=== PATIENT | male | born 1995 ===

== ENCOUNTER 2021-07-16 18:41 | Emergency (ER) | payer OTHER, SELFPAY ==
--- NOTE | ~2021-07-16 | XR_ITS ---
EXAMINATION: XR CHEST CLINICAL INFORMATION: Chest pain. COMPARISON: None TECHNIQUE: PA view of the chest was obtained. FINDINGS: Focal airspace opacity in the right lower lobe. Otherwise, clear lungs. No pleural effusion or pneumothorax. Normal appearance of the cardiomediastinal silhouette. No acute osseous abnormalities. The visualized upper abdomen is within normal limits. XR/XR chest 1V IMPRESSION: Focal airspace opacity in the right lower lobe which is nonspecific and could be associated with focal pneumonia in the appropriate clinical context. Recommend interval imaging to ensure appropriate resolution.
[2021-07-16 18:44] VITALS: BP 153/85; PULSE 115; RESP 17; TEMP 36.8; O2SAT 100; BMI 34.4
--- NOTE | 2021-07-16 18:48 | ECG_ITS ---
Test Reason : CHEST PAIN Blood Pressure : / mmHG Vent. Rate : 101 BPM Atrial Rate : 101 BPM P-R Int : 136 ms QRS Dur : 096 ms QT Int : 328 ms P-R-T Axes : 055 057 052 degrees QTc Int : 425 ms Sinus tachycardia Otherwise normal ECG No previous ECGs available Referred By: Generic ED Physician Electronically Signed By:JAMES MCQUEEN MD
[2021-07-16 19:04] LABS: MANUAL DIFF FLAG NO
[2021-07-16 19:06] LABS: Basophils Percent Auto 0.4 % (0-2); Eosinophils Absolute Auto 0.1 X10*3/uL (0.0-0.4); Eosinophils Percent Auto 0.8 % (0-4); Hematocrit 41.8 % (42.0-52.0); Hemoglobin 14.4 g/dl (14.0-18.0); Imm Gran Abs Auto 0.05 X10*3/uL (0.00-0.03); Imm Gran Pct Auto 0.7 % (0.0-0.4); Lymphocytes Absolute Auto 2.4 X10*3/uL (1.2-4.9); Lymphocytes Percent Auto 32.7 % (20-40); Mean Corpuscular HGB Conc 34.4 g/dl (31.0-36.0); Mean Corpuscular Hemoglobin 30.4 pg (27.0-33.0); Mean Corpuscular Volume 88.2 fL (80.0-98.0); Mean Platelet Volume 11.5 fL (9.4-12.4); Monocytes Absolute Auto 0.6 X10*3/uL (0.1-1.2); Monocytes Percent Auto 8.4 % (2-11); Neutrophils Absolute Auto 4.2 x10*3/uL (2.0-8.3); Platelet Count 208 X10*3/uL (160-400); Red Blood Count 4.74 X10*6/uL (4.60-5.80); Red Cell Distribution Width 13.1 % (11.0-16.0); White Blood Count 7.4 X10*3/uL (4.8-10.8)
[2021-07-16 19:19] LABS: Anion Gap 16 (12-20); Blood Urea Nitrogen 13 mg/dL (9-16); Calcium 9.5 mg/dL (8.4-10.2); Carbon Dioxide 24 mmol/L (22-29); Chloride 102 mmol/L (96-108); Creatinine Clr Calc Pharmacy 115.5; Estimated Glomerular Filt Rate > 60; Glucose Random 123 mg/dL (60-115); Potassium 3.5 mmol/L (3.3-5.1); Sodium 138 mmol/L (135-145)
[2021-07-16 19:26] LABS: Troponin-I High Sensitivity < 3.5 ng/L (<3.5-35.0)
--- NOTE | 2021-07-16 22:34 | ED.CHESTPAIN ---
HPI - Chest Pain General Chief Complaint: Chest Pain Stated Complaint: CP Time Seen by Provider: 07/16/21 22:29 Source: patient Mode of arrival: ambulatory Limitations: no limitations History of Present Illness complaint: chest pain Onset (ago): day(s) (4) Timing of current episode: episodic Prior episodes: No Onset: during rest Pain location: left chest Pain radiation: none Severity: moderate Quality: sharp Relieving factors: nothing Exacerbating factors: supine (seems worse at night or when he lays down feels he has to keep moving) Context: other (denies any other symptoms) Treatment prior to arrival: none Related Data Previous Rx's Medication Instructions Recorded azithromycin 250 mg tablet See Rx Instructions .ROUTE 07/16/21 .COMPLEX #6 tab omeprazole 20 mg capsule,delayed 20 mg PO DAILY 14 Days #14 cap 07/16/21 release Allergies Allergy/AdvReac Type Severity Reaction Status Date / Time No Known Allergies Allergy Verified 07/16/21 18:43 Review of Systems Review of Systems: Constitutional : No Weight loss, No Fever, No Chills ENT/Mouth : No sore throat, No Rhinorrhea Eyes: No Eye Pain, No Swelling Cardiovascular : pos Chest Pain, no SOB, no Dyspnea on Exertion, No Orthopnea, No Edema, No Palpitations Respiratory : No Cough, No Sputum Gastrointestinal : no Nausea, No Vomiting, No Diarrhea, No abdominal Pain, No Hematochezia, No Melena Genitourinary : No Dysuria, No Urinary Frequency Musculoskeletal : No joint pain, No Myalgias, No Joint Swelling Skin : No Skin Lesions, No rash Neuro : No Weakness, No Numbness, No Dizziness, No Headache Psych : No Anxiety/Panic, No Depression Heme/Lymph: No Bruising, No Lymphadenopathy Endocrine : No Polyuria, No Polydipsia All other systems reviewed and are negative [facility] Past Medical History Attestation statement: The following information was validated with the patient. Medical History Arthritis Chronic GERD Social History Social History (Updated 07/16/21 @ 22:48 by Ruth Arevalo DO) Patient Tobacco Use Status: Never used Tobacco Advance Directives: No Physical Exam Vital Signs: Vital Signs: Last Vital Signs Temp 98.8 F 07/16/21 22:35 Pulse 87 07/16/21 22:35 Resp 16 07/16/21 22:35 BP 128/73 07/16/21 22:35 Pulse Ox 98 07/16/21 22:35 BMI result Body Mass Index 34.4 Appearance: Alert. Oriented X3. No acute distress. Eyes: Pupils equal, round and reactive to light. ENT: Pharynx normal. Neck: Normal inspection. Neck supple. CVS: Normal heart rate and rhythm. Pulses normal. Respiratory: No respiratory distress. Breath sounds normal. Abdomen: Soft and non-tender. Skin: Skin warm and dry. Normal skin color. Normal skin turgor. Extremities: No lower extremity edema. No calf ttp Neuro: Oriented X 3. No motor deficit. No sensory deficit. Course Course Course Narrative: HR down, ddimer negative no WBC count no hypoxia negative COVID will start on azithromycin and PPI - stable for outpatient management MDM - Chest Pain MDM Narrative Medical decision making narrative: 26 yo male with hx of GERD currently only on Tums states for the past 4 days he notes sharp L chest pain without associated symptoms seems worse at night and worse if he is laying still he has no ACS risk factors. At this time will obtain EKG, troponin x 2, ddimer given tachycardia. Could be untreated GERD as well. Dispo per results and findings. Differential Diagnosis Differential diagnosis: Likely atypical chest pain and chest pain; Unlikely pneumothorax, stable angina, unstable angina pectoris or st elevation myocardial infarction Lab Data Result diagrams: 07/16/21 19:00 07/16/21 19:00 Labs: Lab Results 07/16/21 07/16/21 07/16/21 Range/Units 19:00 19:00 19:00 WBC 7.4 (4.8-10.8) X10*3/uL RBC 4.74 (4.60-5.80) X10*6/uL Hgb 14.4 (14.0-18.0) g/dl Hct 41.8 L (42.0-52.0) % MCV 88.2 (80.0-98.0) fL MCH 30.4 (27.0-33.0) pg MCHC 34.4 (31.0-36.0) g/dl RDW 13.1 (11.0-16.0) % Plt Count 208 (160-400) X10*3/uL MPV 11.5 (9.4-12.4) fL Immature Gran % (Auto) 0.7 H (0.0-0.4) % Neut % (Auto) 57.0 (45-73) % Lymph % (Auto) 32.7 (20-40) % [place] % (Auto) 8.4 (2-11) % Eos % (Auto) 0.8 (0-4) % Baso % (Auto) 0.4 (0-2) % Lymph # (Auto) 2.4 (1.2-4.9) X10*3/uL [place] # (Auto) 0.6 (0.1-1.2) X10*3/uL Eos # (Auto) 0.1 (0.0-0.4) X10*3/uL Baso # (Auto) 0.0 (0.0-0.2) X10*3/uL Abs Immat Gran (auto) 0.05 H (0.00-0.03) X10*3/uL Absolute Neuts (auto) 4.2 (2.0-8.3) x10*3/uL Absolute Nucleated RBC 0.000 (0.0-0.012) X10*3/uL Nucleated RBC % (auto) 0.0 (0.0-0.2) /100WBC D-Dimer High Sensitivty NG/ML Sodium 138 (135-145) mmol/L Potassium 3.5 (3.3-5.1) mmol/L Chloride 102 (96-108) mmol/L Carbon Dioxide 24 (22-29) mmol/L Anion Gap 16 (12-20) BUN 13 (9-16) mg/dL Creatinine 1.09 (0.5-1.4) mg/dL Estim Creat Clear Calc 115.5 Estimated GFR > 60 Random Glucose 123 H (60-115) mg/dL Calcium 9.5 (8.4-10.2) mg/dL Troponin I High Sens < 3.5 (<3.5-35.0) ng/L COVID-19 (AMANDO) (Negative) COVID-19 Clin Com 07/16/21 07/16/21 Range/Units 22:39 22:48 WBC (4.8-10.8) X10*3/uL RBC (4.60-5.80) X10*6/uL Hgb (14.0-18.0) g/dl Hct (42.0-52.0) % MCV (80.0-98.0) fL MCH (27.0-33.0) pg MCHC (31.0-36.0) g/dl RDW (11.0-16.0) % Plt Count (160-400) X10*3/uL MPV (9.4-12.4) fL Immature Gran % (Auto) (0.0-0.4) % Neut % (Auto) (45-73) % Lymph % (Auto) (20-40) % [place] % (Auto) (2-11) % Eos % (Auto) (0-4) % Baso % (Auto) (0-2) % Lymph # (Auto) (1.2-4.9) X10*3/uL [place] # (Auto) (0.1-1.2) X10*3/uL Eos # (Auto) (0.0-0.4) X10*3/uL Baso # (Auto) (0.0-0.2) X10*3/uL Abs Immat Gran (auto) (0.00-0.03) X10*3/uL Absolute Neuts (auto) (2.0-8.3) x10*3/uL Absolute Nucleated RBC (0.0-0.012) X10*3/uL Nucleated RBC % (auto) (0.0-0.2) /100WBC D-Dimer High Sensitivty < 150 NG/ML Sodium (135-145) mmol/L Potassium (3.3-5.1) mmol/L Chloride (96-108) mmol/L Carbon Dioxide (22-29) mmol/L Anion Gap (12-20) BUN (9-16) mg/dL Creatinine (0.5-1.4) mg/dL Estim Creat Clear Calc Estimated GFR Random Glucose (60-115) mg/dL Calcium (8.4-10.2) mg/dL Troponin I High Sens (<3.5-35.0) ng/L COVID-19 (AMANDO) Negative (Negative) COVID-19 Clin Com See Note ECG Data ECG #1: Attestation: I personally reviewed and interpreted this ECG as follows: ECG interpretation date: 07/16/21 ECG interpretation time: 22:35 Interpretation: Rate: 101 Rhythm: sinus tachycardia [place]: normal Normal P waves. Normal [place]. Normal QRS complex. ST T wave : no [place]UB[place], normal qTC: normal prior studies: no acute ischemia The study has been interpreted contemporaneously by me. Discharge Plan Discharge Clinical Impression: Atypical chest pain, Pneumonia Patient Disposition: Home, Self-Care Instructions: Chest Pain (ED), Pneumonia (ED) Additional Instructions: return to ED for any worsening symptoms or concerns NEGATIVE for COVID Prescriptions: New azithromycin 250 mg tablet See Rx Instructions .ROUTE .COMPLEX Qty: 6 0RF Rx Instructions: For 250 mg dose pack: take 500 mg today (day 1), then 250 mg for 4 days (days 2-5) omeprazole 20 mg capsule,delayed release(DR/EC) 20 mg PO DAILY 14 Days Qty: 14 0RF Referrals: Physician,Unknown J [Primary Care Provider] - 3 days (if not better) Stand Alone Forms: Work/School Release
[2021-07-16 22:35] VITALS: BP 128/73; PULSE 87; RESP 16; TEMP 37.1; O2SAT 98
[2021-07-16] MEDS: Magnesium Hydrox/Alum Hydrox 30 ML ORAL.SUSP PO (22:59)
[2021-07-16 23:01] LABS: COVID-19 Test Negative (Negative)
[2021-07-16 23:10] LABS: D Dimer High Sensitivity < 150 NG/ML
[2021-07-16 23:26] LABS: Troponin-I High Sensitivity < 3.5 ng/L (<3.5-35.0)
[2021-07-16 23:39] VITALS: BP 120/81; PULSE 77; RESP 16; O2SAT 98
[2021-07-16] MEDS: cefTRIAXone sodium 1 GM in 0.9 % Sodium Chloride 50 ML IV (23:41)
== END 2021-07-16 23:55 | disposition home or self-care (01) ==
PROVIDERS: Emergency Provider Emergency Medicine
DX: J18.9 Pneumonia, unspecified organism (principal); R07.9 Chest pain, unspecified; Z79.899 Other long term (current) drug therapy; Z20.822 Contact with and (suspected) exposure to COVID-19
CPT/HCPCS: 36415; 71045; 80048; 84484; 85025; 85379; 87635; 93005; 96365; 99284; J0696

== ENCOUNTER 2021-10-25 17:32 | Emergency (ER) | payer MEDICAID, OTHER, SELFPAY ==
--- NOTE | ~2021-10-25 | XR_ITS ---
EXAMINATION: XR CHEST CLINICAL INFORMATION: Chest pain. COMPARISON: 07/16/2021. TECHNIQUE: PA view of the chest was obtained. FINDINGS: Normal appearance of the cardiomediastinal silhouette. No focal airspace opacities, pleural effusions or pneumothorax. No acute osseous abnormalities. The visualized upper abdomen is within normal limits. XR/XR chest 1V IMPRESSION: No acute cardiopulmonary findings.
[2021-10-25 18:01] VITALS: BP 128/76; PULSE 87; RESP 18; TEMP 36.8; O2SAT 100; BMI 32.5
--- NOTE | 2021-10-25 18:04 | ECG_ITS ---
Test Reason : UPPER ABDMINAL PAIN Blood Pressure : / mmHG Vent. Rate : 079 BPM Atrial Rate : 079 BPM P-R Int : 134 ms QRS Dur : 094 ms QT Int : 342 ms P-R-T Axes : 000 054 053 degrees QTc Int : 392 ms Normal sinus rhythm Normal ECG When compared with ECG of 16-JUL-2021 18:49, No significant change was found Referred By: Generic ED Physician Electronically Signed By:Lucio Aleman
[2021-10-25 18:29] LABS: Basophils Percent Auto 0.6 % (0-2); Eosinophils Absolute Auto 0.1 X10*3/uL (0.0-0.4); Hemoglobin 14.8 g/dl (14.0-18.0); Imm Gran Abs Auto 0.02 X10*3/uL (0.00-0.03); Imm Gran Pct Auto 0.4 % (0.0-0.4); Lymphocytes Absolute Auto 1.4 X10*3/uL (1.2-4.9); Lymphocytes Percent Auto 26.7 % (20-40); MANUAL DIFF FLAG NO; Mean Corpuscular HGB Conc 34.4 g/dl (31.0-36.0); Mean Corpuscular Volume 87.2 fL (80.0-98.0); Mean Platelet Volume 11.6 fL (9.4-12.4); Monocytes Absolute Auto 0.5 X10*3/uL (0.1-1.2); Monocytes Percent Auto 10.1 % (2-11); Neutrophils Absolute Auto 3.2 x10*3/uL (2.0-8.3); Neutrophils Percent Auto 61.2 % (45-73); Platelet Count 216 X10*3/uL (160-400); Red Blood Count 4.93 X10*6/uL (4.60-5.80); Red Cell Distribution Width 12.8 % (11.0-16.0); White Blood Count 5.2 X10*3/uL (4.8-10.8)
[2021-10-25 18:48] LABS: Alanine Aminotransferase 31 U/L (0-40); Albumin Level 4.8 g/dL (3.5-5.0); Alkaline Phosphatase 74 U/L (39-117); Anion Gap 14 (12-20); Aspartate Amino Transferase 22 U/L (5-37); Bilirubin Total 0.7 mg/dL (0.0-1.0); Blood Urea Nitrogen 7 mg/dL (9-16); Carbon Dioxide 25 mmol/L (22-29); Chloride 104 mmol/L (96-108); Creatinine Clr Calc Pharmacy 136.2; Estimated Glomerular Filt Rate > 60; Glucose Random 84 mg/dL (60-115); Potassium 4.1 mmol/L (3.3-5.1); Sodium 139 mmol/L (135-145); Total Protein 7.7 g/dL (6.5-8.0)
[2021-10-25 18:54] LABS: Troponin-I High Sensitivity < 3.5 ng/L (<3.5-35.0)
[2021-10-25 22:11] VITALS: BP 130/69; PULSE 63; RESP 16; TEMP 36.5; O2SAT 99
--- NOTE | 2021-10-25 22:23 | ED.ABDPAIN ---
HPI - Abdominal Pain General Chief Complaint: Abdominal Pain Stated Complaint: Stomach Pain GERD Time Seen by Provider: 10/25/21 22:23 History of Present Illness HPI narrative: Patient is a 26-year-old male presents today with having abdominal pain and burning sensation to the back of sodas been ongoing for few weeks. Patient from home. No fever no chills. Been trying to take some Pepcid but no avail. Patient claims that the symptoms have been ongoing. It is over mid chest it is worse at night has a burning sensation the back of the throat patient claims when she sits up it improved. But is constantly there. It has been there all day today. No cough and no congestion or upper respiratory symptoms. No diaphoresis. No history of diabetes, hypertension, mi, family history of ND. No history of polysubstance abuse. No history of cocaine or heroin use. No history of travel. No history of leg swelling. No history of blood clots in the past. Patient is from home. Related Data Previous Rx's Medication Instructions Recorded azithromycin 250 mg tablet See Rx Instructions .ROUTE 07/16/21 .COMPLEX #6 tab omeprazole 20 mg capsule,delayed 20 mg PO DAILY 14 Days #14 cap 07/16/21 release omeprazole magnesium 20 mg 20 mg PO DAILY 21 Days #21 tab 10/25/21 tablet,delayed release (Prilosec OTC) Allergies Allergy/AdvReac Type Severity Reaction Status Date / Time No Known Allergies Allergy Verified 10/25/21 17:59 Review of Systems Review of Systems Positive epigastric pain positive chest pain burning Yes all other systems are reviewed and are negative PMFSH Past Medical History Attestation statement: The following information was validated with the patient. Medical History Arthritis Chronic GERD Social History Social History Patient Tobacco Use Status: Never used Tobacco Physical Exam ED Vital Signs: Vital Signs - 24 hr 10/25/21 18:01 10/25/21 22:11 Temperature 98.3 F 97.7 F Pulse Rate 87 63 Respiratory Rate 18 16 Blood Pressure 128/76 130/69 Pulse Oximetry 100 99 BMI result Body Mass Index 32.5 Appearance: Alert. Oriented X3. No acute distress. Eyes: Pupils equal, round and reactive to light. ENT: Pharynx normal. Neck: Normal inspection. Neck supple. No lymph nodes noted. No crepitus CVS: Normal heart rate and rhythm. Pulses normal. Normal S1 and S2 Respiratory: No respiratory distress. Breath sounds normal. No Wheezing. No rales Abdomen: Soft and nontender. No rigidity. No distention. good BS x4 Skin: Skin warm and dry. Normal skin color. Normal skin turgor. Extremities: No lower extremity edema. Neurovascular intact to all extremities. No Lacerations. No Rash Neuro: Oriented X 3. No motor deficit. No sensory deficit. Moving all extermities. No slurred speech MDM - Abdominal Pain MDM Narrative Medical decision making narrative: Well-appearing no acute distress. Signs and symptoms suggestive of reflux. Patient's EKG showed a sinus pattern heart rate 75 NE QRS QT within normal limits as no acute ST segment elevation despite having continuous pain patient's troponin is negative history atypical has no history. Heart score is less than 3 unlikely ACS. Patient likely has reflux. Will start patient on PPI. Will have patient follow-up on an outpatient basis. He is in stable condition. Patient has no risk factors for PE. Medical Records Attestation: I reviewed the patient's medical records. Lab Data Attestation: I reviewed the patient's lab results. Result diagrams: 10/25/21 18:10 10/25/21 18:10 Labs: Lab Results 10/25/21 10/25/21 10/25/21 Range/Units 18:10 18:10 18:10 WBC 5.2 (4.8-10.8) X10*3/uL RBC 4.93 (4.60-5.80) X10*6/uL Hgb 14.8 (14.0-18.0) g/dl Hct 43.0 (42.0-52.0) % MCV 87.2 (80.0-98.0) fL MCH 30.0 (27.0-33.0) pg MCHC 34.4 (31.0-36.0) g/dl RDW 12.8 (11.0-16.0) % Plt Count 216 (160-400) X10*3/uL MPV 11.6 (9.4-12.4) fL Immature Gran % (Auto) 0.4 (0.0-0.4) % Neut % (Auto) 61.2 (45-73) % Lymph % (Auto) 26.7 (20-40) % [place] % (Auto) 10.1 (2-11) % Eos % (Auto) 1.0 (0-4) % Baso % (Auto) 0.6 (0-2) % Lymph # (Auto) 1.4 (1.2-4.9) X10*3/uL [place] # (Auto) 0.5 (0.1-1.2) X10*3/uL Eos # (Auto) 0.1 (0.0-0.4) X10*3/uL Baso # (Auto) 0.0 (0.0-0.2) X10*3/uL Abs Immat Gran (auto) 0.02 (0.00-0.03) X10*3/uL Absolute Neuts (auto) 3.2 (2.0-8.3) x10*3/uL Absolute Nucleated RBC 0.000 (0.0-0.012) X10*3/uL Nucleated RBC % (auto) 0.0 (0.0-0.2) /100WBC Sodium 139 (135-145) mmol/L Potassium 4.1 (3.3-5.1) mmol/L Chloride 104 (96-108) mmol/L Carbon Dioxide 25 (22-29) mmol/L Anion Gap 14 (12-20) BUN 7 L (9-16) mg/dL Creatinine 0.90 (0.5-1.4) mg/dL Estim Creat Clear Calc 136.2 Estimated GFR > 60 Random Glucose 84 (60-115) mg/dL Calcium 10.0 (8.4-10.2) mg/dL Total Bilirubin 0.7 (0.0-1.0) mg/dL AST 22 (5-37) U/L ALT 31 (0-40) U/L Alkaline Phosphatase 74 (39-117) U/L Troponin I High Sens < 3.5 (<3.5-35.0) ng/L Total Protein 7.7 (6.5-8.0) g/dL Albumin 4.8 (3.5-5.0) g/dL Discharge Plan Discharge Clinical Impression: Acid reflux Patient Disposition: Home, Self-Care Instructions: Diet for Stomach Ulcers and Gastritis (ED), Gastroesophageal Reflux Disease (ED) Prescriptions: New omeprazole magnesium [Prilosec OTC] 20 mg tablet,delayed release (DR/EC) 20 mg PO DAILY 21 Days Qty: 21 0RF No Action azithromycin 250 mg tablet See Rx Instructions .ROUTE .COMPLEX Qty: 6 0RF Rx Instructions: For 250 mg dose pack: take 500 mg today (day 1), then 250 mg for 4 days (days 2-5) omeprazole 20 mg capsule,delayed release(DR/EC) 20 mg PO DAILY 14 Days Qty: 14 0RF Referrals: [facility] [Physician] -
== END 2021-10-25 22:47 | disposition home or self-care (01) ==
LOC: HO.ED 22:38
PROVIDERS: Emergency Provider Emergency Medicine Emergency Medical Services
DX: K21.9 Gastro-esophageal reflux disease without esophagitis (principal); R07.89 Other chest pain; R10.13 Epigastric pain; Z79.899 Other long term (current) drug therapy
CPT/HCPCS: 36415; 71045; 80053; 84484; 85025; 93005; 99283; 99284

== ENCOUNTER 2021-11-23 05:04 | Emergency (ER) | payer MEDICAID, OTHER, SELFPAY ==
--- NOTE | ~2021-11-23 | XR_ITS ---
EXAMINATION: XR CHEST CLINICAL INFORMATION: Chest pain COMPARISON: Chest radiograph 10/25/2021. 07/16/2021 TECHNIQUE: Frontal view of the chest was obtained. FINDINGS: Normal appearance of the cardiomediastinal structures. No effusions or pneumothoraces. A 3 mm rounded density is projected over the periphery of the right lung base unchanged compared with 07/16/2021. No focal pulmonary consolidation. No groundglass opacities. XR/XR chest 1V IMPRESSION: *3 mm right lung base pulmonary nodule unchanged compared with 07/16/2021 which may represent a calcified pulmonary granuloma. *No acute cardiopulmonary abnormalities identified.
--- NOTE | 2021-11-23 05:08 | ECG_ITS ---
Test Reason : CHEST PAIN Blood Pressure : / mmHG Vent. Rate : 080 BPM Atrial Rate : 080 BPM P-R Int : 120 ms QRS Dur : 102 ms QT Int : 356 ms P-R-T Axes : 003 052 039 degrees QTc Int : 410 ms Normal sinus rhythm Nonspecific T wave abnormality Abnormal ECG When compared with ECG of 25-OCT-2021 18:00, Nonspecific T wave abnormality now evident in Lateral leads Referred By: Generic ED Physician Electronically Signed By:FELICITAS MYERS
[2021-11-23 05:34] VITALS: BP 137/80; PULSE 79; RESP 18; TEMP 36.6; O2SAT 99; BMI 31.0
[2021-11-23 05:38] LABS: Basophils Percent Auto 0.5 % (0-2); Eosinophils Absolute Auto 0.1 X10*3/uL (0.0-0.4); Eosinophils Percent Auto 1.2 % (0-4); Hematocrit 44.7 % (42.0-52.0); Hemoglobin 15.2 g/dl (14.0-18.0); Imm Gran Abs Auto 0.02 X10*3/uL (0.00-0.03); Imm Gran Pct Auto 0.3 % (0.0-0.4); Lymphocytes Absolute Auto 2.5 X10*3/uL (1.2-4.9); Lymphocytes Percent Auto 38.5 % (20-40); MANUAL DIFF FLAG NO; Mean Corpuscular Hemoglobin 29.7 pg (27.0-33.0); Mean Corpuscular Volume 87.3 fL (80.0-98.0); Mean Platelet Volume 11.6 fL (9.4-12.4); Monocytes Absolute Auto 0.6 X10*3/uL (0.1-1.2); Monocytes Percent Auto 8.5 % (2-11); Neutrophils Absolute Auto 3.3 x10*3/uL (2.0-8.3); Platelet Count 197 X10*3/uL (160-400); Red Blood Count 5.12 X10*6/uL (4.60-5.80); White Blood Count 6.4 X10*3/uL (4.8-10.8)
--- NOTE | 2021-11-23 05:52 | ED_ITS ---
HPI - Chest Pain General Chief Complaint: Chest Pain Stated Complaint: chest pain, nausea, weak, L side pain Time Seen by Provider: 11/23/21 05:52 Related Data Previous Rx's Medication Instructions Recorded azithromycin 250 mg tablet See Rx Instructions PO .COMPLEX #6 07/16/21 tabs omeprazole 20 mg capsule,delayed 20 mg PO DAILY 14 days #14 caps 07/16/21 release omeprazole magnesium 20 mg 20 mg PO DAILY 3 weeks #21 tabs 10/25/21 tablet,delayed release (Prilosec OTC) sucralfate 1 gram tablet 1 g PO TID #90 tabs 11/23/21 Allergies Allergy/AdvReac Type Severity Reaction Status Date / Time No Known Allergies Allergy Verified 11/23/21 05:36 [facility] Past Medical History Medical History Arthritis Chronic GERD Social History Social History Patient Tobacco Use Status: Never used Tobacco Advance Directives: Yes Advance Directives Information Provided: Yes Advance Directives on File: No Physical Exam Vital Signs: Vital Signs: Last Vital Signs Temp 97.8 F 11/23/21 05:34 Pulse 79 11/23/21 05:34 Resp 18 11/23/21 05:34 BP 137/80 11/23/21 05:34 Pulse Ox 99 11/23/21 05:34 O2 Del Method 11/23/21 05:34 BMI result Body Mass Index 31.0 MDM - Chest Pain MDM Narrative Medical decision making narrative: Patient has chronic atypical chest pain mostly in epigastric area likely GERD pain is going on since 07/21 with multiple ED visits and multiple troponin negative EKG is normal catrachito to follow with PCP Lab Data Attestation: I reviewed the patient's lab results. Result diagrams: 11/23/21 05:31 11/23/21 05:32 Labs: Lab Results 11/23/21 11/23/21 11/23/21 Range/Units 05:31 05:32 05:32 WBC 6.4 (4.8-10.8) X10*3/uL RBC 5.12 (4.60-5.80) X10*6/uL Hgb 15.2 (14.0-18.0) g/dl Hct 44.7 (42.0-52.0) % MCV 87.3 (80.0-98.0) fL MCH 29.7 (27.0-33.0) pg MCHC 34.0 (31.0-36.0) g/dl RDW 13.0 (11.0-16.0) % Plt Count 197 (160-400) X10*3/uL MPV 11.6 (9.4-12.4) fL Immature Gran % (Auto) 0.3 (0.0-0.4) % Neut % (Auto) 51.0 (45-73) % Lymph % (Auto) 38.5 (20-40) % [place] % (Auto) 8.5 (2-11) % Eos % (Auto) 1.2 (0-4) % Baso % (Auto) 0.5 (0-2) % Lymph # (Auto) 2.5 (1.2-4.9) X10*3/uL [place] # (Auto) 0.6 (0.1-1.2) X10*3/uL Eos # (Auto) 0.1 (0.0-0.4) X10*3/uL Baso # (Auto) 0.0 (0.0-0.2) X10*3/uL Abs Immat Gran (auto) 0.02 (0.00-0.03) X10*3/uL Absolute Neuts (auto) 3.3 (2.0-8.3) x10*3/uL Absolute Nucleated RBC 0.000 (0.0-0.012) X10*3/uL Nucleated RBC % (auto) 0.0 (0.0-0.2) /100WBC Sodium 138 (135-145) mmol/L Potassium 3.6 (3.3-5.1) mmol/L Chloride 103 (96-108) mmol/L Carbon Dioxide 25 (22-29) mmol/L Anion Gap 14 (12-20) BUN 11 D (9-16) mg/dL Creatinine 0.95 (0.5-1.4) mg/dL Estim Creat Clear Calc 125.9 Estimated GFR > 60 Random Glucose 93 (60-115) mg/dL Calcium 10.0 (8.4-10.2) mg/dL Troponin I High Sens < 3.5 (<3.5-35.0) ng/L ECG Data ECG #1: Attestation: I personally reviewed and interpreted this ECG as follows: Interpretation: Normal sinus rhythm heart rate 80 beats per minute normal interval normal axis no acute ST T wave changes no acute ischemia Discharge Plan Discharge Clinical Impression: Atypical chest pain, Chronic GERD Patient Disposition: Home, Self-Care Instructions: Gastroesophageal Reflux Disease (ED), Noncardiac Chest Pain (ED) Additional Instructions: You do not have any heart problem chest pain is likely from stomach follow-up with multiple coil winder Continue to take medication for good as prescribed Prescriptions: New sucralfate 1 gram tablet 1 g PO TID Qty: 90 0RF No Action omeprazole magnesium [Prilosec OTC] 20 mg tablet,delayed release (DR/EC) 20 mg PO DAILY 21 Days Qty: 21 0RF azithromycin 250 mg tablet See Rx Instructions .ROUTE .COMPLEX Qty: 6 0RF Rx Instructions: For 250 mg dose pack: take 500 mg today (day 1), then 250 mg for 4 days (days 2-5) omeprazole 20 mg capsule,delayed release(DR/EC) 20 mg PO DAILY 14 Days Qty: 14 0RF
[2021-11-23 05:58] LABS: Anion Gap 14 (12-20); Blood Urea Nitrogen 11 mg/dL (9-16); Carbon Dioxide 25 mmol/L (22-29); Chloride 103 mmol/L (96-108); Creatinine Clr Calc Pharmacy 125.9; Estimated Glomerular Filt Rate > 60; Glucose Random 93 mg/dL (60-115); Potassium 3.6 mmol/L (3.3-5.1); Sodium 138 mmol/L (135-145)
[2021-11-23 06:05] LABS: Troponin-I High Sensitivity < 3.5 ng/L (<3.5-35.0)
[2021-11-23] MEDS: Dicyclomine HCl 10 MG CAPSULE 20 MG PO (06:15)
[2021-11-23] MEDS: Magnesium Hydrox/Alum Hydrox 30 ML ORAL.SUSP PO (06:15)
[2021-11-23 06:21] VITALS: BP 118/69; PULSE 79; RESP 16; TEMP 36.8; O2SAT 99
== END 2021-11-23 06:23 | disposition home or self-care (01) ==
PROVIDERS: Emergency Provider Internal Medicine
DX: R07.89 Other chest pain (principal); K21.9 Gastro-esophageal reflux disease without esophagitis; R11.2 Nausea with vomiting, unspecified; Z79.899 Other long term (current) drug therapy
CPT/HCPCS: 36415; 71045; 80048; 84484; 85025; 93005; 99283; 99284

== ENCOUNTER 2021-12-17 04:21 | Emergency (ER) | payer MEDICAID, OTHER, SELFPAY ==
--- NOTE | ~2021-12-17 | XR_ITS ---
EXAMINATION: XR CHEST CLINICAL INFORMATION: Shortness of breath COMPARISON: 11/23/2021 TECHNIQUE: Frontal view of the chest was obtained. FINDINGS: The lungs are clear with no focal consolidation. Redemonstrated small nodular focus at the right base, suggestive of a calcified granuloma. No evidence of pneumothorax, pulmonary edema, or pleural effusions. The cardiomediastinal silhouette is unremarkable. No acute osseous findings. XR/XR chest 1V IMPRESSION: No acute cardiopulmonary findings.
[2021-12-17 04:28] VITALS: BP 135/73; PULSE 85; RESP 18; TEMP 37.1; O2SAT 100; BMI 31.3
[2021-12-17 04:41] LABS: Basophils Percent Auto 0.3 % (0-2); Eosinophils Absolute Auto 0.1 X10*3/uL (0.0-0.4); Eosinophils Percent Auto 1.6 % (0-4); Hematocrit 41.9 % (42.0-52.0); Hemoglobin 14.4 g/dl (14.0-18.0); Imm Gran Abs Auto 0.02 X10*3/uL (0.00-0.03); Imm Gran Pct Auto 0.3 % (0.0-0.4); Lymphocytes Absolute Auto 2.7 X10*3/uL (1.2-4.9); Lymphocytes Percent Auto 38.8 % (20-40); MANUAL DIFF FLAG NO; Mean Corpuscular HGB Conc 34.4 g/dl (31.0-36.0); Mean Corpuscular Hemoglobin 29.8 pg (27.0-33.0); Mean Corpuscular Volume 86.7 fL (80.0-98.0); Mean Platelet Volume 11.6 fL (9.4-12.4); Monocytes Absolute Auto 0.6 X10*3/uL (0.1-1.2); Neutrophils Absolute Auto 3.6 x10*3/uL (2.0-8.3); Platelet Count 184 X10*3/uL (160-400); Red Blood Count 4.83 X10*6/uL (4.60-5.80); Red Cell Distribution Width 13.1 % (11.0-16.0)
--- NOTE | 2021-12-17 04:41 | ECG_ITS ---
Test Reason : DYSPNEA Blood Pressure : / mmHG Vent. Rate : 078 BPM Atrial Rate : 078 BPM P-R Int : 132 ms QRS Dur : 094 ms QT Int : 356 ms P-R-T Axes : -03 049 035 degrees QTc Int : 405 ms Normal sinus rhythm Normal ECG When compared with ECG of 23-NOV-2021 05:04, Nonspecific T wave abnormality no longer evident in Lateral leads Referred By: Generic ED Physician Electronically Signed By:Lucio Aleman
[2021-12-17 04:46] LABS: Strep A Nucleic Acid Negative (Negative)
[2021-12-17 04:56] LABS: COVID-19 Test Negative (Negative); IDNOW Serial# 55D5AD1C
[2021-12-17 05:06] LABS: Alanine Aminotransferase 18 U/L (0-40); Albumin Level 4.5 g/dL (3.5-5.0); Alkaline Phosphatase 79 U/L (39-117); Anion Gap 13 (12-20); Aspartate Amino Transferase 14 U/L (5-37); Bilirubin Total 0.6 mg/dL (0.0-1.0); Blood Urea Nitrogen 10 mg/dL (9-16); Calcium 9.5 mg/dL (8.4-10.2); Carbon Dioxide 24 mmol/L (22-29); Chloride 105 mmol/L (96-108); Creatinine Clr Calc Pharmacy 129.3; Estimated Glomerular Filt Rate > 60; Glucose Random 102 mg/dL (60-115); Potassium 3.7 mmol/L (3.3-5.1); Sodium 138 mmol/L (135-145); Total Protein 7.2 g/dL (6.5-8.0)
--- NOTE | 2021-12-17 05:33 | ED.GENADULT ---
HPI - General Adult General Chief complaint: Dyspnea Stated complaint: diff breathing Time Seen by Provider: 12/17/21 04:28 Source: patient Mode of arrival: ambulatory Limitations: no limitations History of Present Illness HPI narrative: Patient comes to the emergency room complaining that he woke up with a sensation that he could not swallow, questionably choking, questionably short of breath, lasted a few seconds and then it self-resolved. At this time, patient is asymptomatic. Denies chest pain or shortness of breath, no GERD, no abdominal pain, no URI or UTI symptoms. No fever chills. Related Data Previous Rx's Medication Instructions Recorded azithromycin 250 mg tablet See Rx Instructions PO .COMPLEX #6 07/16/21 tabs omeprazole 20 mg capsule,delayed 20 mg PO DAILY 14 days #14 caps 07/16/21 release omeprazole magnesium 20 mg 20 mg PO DAILY 3 weeks #21 tabs 10/25/21 tablet,delayed release (Prilosec OTC) aluminum hydrox-magnesium carb 254 10 ml PO QID PRN dyspepsia #355 mL 11/23/21 mg-237.5 mg/5 mL oral suspension (Gaviscon Extra Strength) Allergies Allergy/AdvReac Type Severity Reaction Status Date / Time No Known Allergies Allergy Verified 11/23/21 05:36 Review of Systems Review of Systems: Constitutional : No Weight loss, No Fever, No Chills, No Night Sweats, No Fatigue, No Malaise ENT/Mouth : No Hearing loss, No Ear Pain, No Nasal Congestion, No Sinus Pain, No Hoarseness, No sore throat, No Rhinorrhea, No Swallowing Difficulty Eyes: No Eye Pain, No Swelling, No Redness, No Foreign Body, No Discharge, No Vision Changes Cardiovascular : No Chest Pain, No SOB, No Dyspnea on Exertion, No Orthopnea, No Edema, No Palpitations Respiratory : No Cough, No Sputum, No Wheezing, No Smoke Exposure, No Dyspnea Gastrointestinal : No Nausea, No Vomiting, No Diarrhea, No Constipation, No abdominal Pain, No Hematochezia, No Melena Genitourinary : no irregular bleeding, No Dysuria, No Urinary Frequency, No Hematuria, No Urinary Incontinence, No Urgency, No Flank Pain, No Urinary Flow Changes, No Hesitancy Musculoskeletal : No joint pain, No Myalgias, No Joint Swelling Skin : No Skin Lesions, No rash Neuro : No Weakness, No Numbness, No Paresthesias, No Loss of Consciousness, No Dizziness, No Headache Psych : No Anxiety/Panic, No Depression, No SI/HI/AH/VH, No Social Issues, Heme/Lymph: No Bruising, No Bleeding,No Lymphadenopathy Endocrine : No Polyuria, No Polydipsia, No Temperature Intolerance [facility] Past Medical History Medical History Arthritis Chronic GERD Social History Social History Patient Tobacco Use Status: Never used Tobacco Physical Exam ED Vital Signs: Vital Signs - 24 hr 12/17/21 04:28 Temperature 98.7 F Pulse Rate 85 Respiratory Rate 18 Blood Pressure 135/73 Pulse Oximetry 100 Oxygen Delivery Method Room Air BMI result Body Mass Index 31.3 Const Other: Appearance: Alert. Oriented X3. No acute distress. Eyes: Pupils equal, round and reactive to light. ENT: Pharynx normal. Neck: Normal inspection. Neck supple. No lymph nodes noted. No crepitus CVS: Normal heart rate and rhythm. Pulses normal. Normal S1 and S2 Respiratory: No respiratory distress. Breath sounds normal. No Wheezing. No rales Abdomen: Soft and nontender. No rigidity. No distention. Skin: Skin warm and dry. Normal skin color. Normal skin turgor. Extremities: No lower extremity edema. No Lacerations. No Rash Neuro: Oriented X 3. No motor deficit. No sensory deficit. Moving all extremities. No slurred speech. CN 2 through 12 grossly intact Psych: calm, cooperative, normal affect Course Course Course Narrative: It is possible that patient collected a large amount of sputum in the airway, woke up, coughed it out and went back normal. Versus GERD. At this time, patient is asymptomatic I discussed the labs and imaging with the patient, no acute findings. I reviewed the x-ray myself, I do not see any consolidations. Report of Radiology is pending. Medical Decision Making Lab Data Result diagrams: 12/17/21 04:34 12/17/21 04:34 Labs: Lab Results 12/17/21 12/17/21 12/17/21 Range/Units 04:34 04:34 04:34 WBC 7.0 (4.8-10.8) X10*3/uL RBC 4.83 (4.60-5.80) X10*6/uL Hgb 14.4 (14.0-18.0) g/dl Hct 41.9 L (42.0-52.0) % MCV 86.7 (80.0-98.0) fL MCH 29.8 (27.0-33.0) pg MCHC 34.4 (31.0-36.0) g/dl RDW 13.1 (11.0-16.0) % Plt Count 184 (160-400) X10*3/uL MPV 11.6 (9.4-12.4) fL Immature Gran % (Auto) 0.3 (0.0-0.4) % Neut % (Auto) 51.0 (45-73) % Lymph % (Auto) 38.8 (20-40) % Leake % (Auto) 8.0 (2-11) % Eos % (Auto) 1.6 (0-4) % Baso % (Auto) 0.3 (0-2) % Lymph # (Auto) 2.7 (1.2-4.9) X10*3/uL Leake # (Auto) 0.6 (0.1-1.2) X10*3/uL Eos # (Auto) 0.1 (0.0-0.4) X10*3/uL Baso # (Auto) 0.0 (0.0-0.2) X10*3/uL Abs Immat Gran (auto) 0.02 (0.00-0.03) X10*3/uL Absolute Neuts (auto) 3.6 (2.0-8.3) x10*3/uL Absolute Nucleated RBC 0.000 (0.0-0.012) X10*3/uL Nucleated RBC % (auto) 0.0 (0.0-0.2) /100WBC Sodium (135-145) mmol/L Potassium (3.3-5.1) mmol/L Chloride (96-108) mmol/L Carbon Dioxide (22-29) mmol/L Anion Gap (12-20) BUN (9-16) mg/dL Creatinine (0.5-1.4) mg/dL Estim Creat Clear Calc Estimated GFR Random Glucose (60-115) mg/dL Calcium (8.4-10.2) mg/dL Total Bilirubin (0.0-1.0) mg/dL AST (5-37) U/L ALT (0-40) U/L Alkaline Phosphatase (39-117) U/L Total Protein (6.5-8.0) g/dL Albumin (3.5-5.0) g/dL COVID-19 (AMANDO) Negative (Negative) COVID-19 Clin Com See Note S. pyogenes GrpA [place] Negative (Negative) 12/17/21 Range/Units 04:34 WBC (4.8-10.8) X10*3/uL RBC (4.60-5.80) X10*6/uL Hgb (14.0-18.0) g/dl Hct (42.0-52.0) % MCV (80.0-98.0) fL MCH (27.0-33.0) pg MCHC (31.0-36.0) g/dl RDW (11.0-16.0) % Plt Count (160-400) X10*3/uL MPV (9.4-12.4) fL Immature Gran % (Auto) (0.0-0.4) % Neut % (Auto) (45-73) % Lymph % (Auto) (20-40) % Leake % (Auto) (2-11) % Eos % (Auto) (0-4) % Baso % (Auto) (0-2) % Lymph # (Auto) (1.2-4.9) X10*3/uL Leake # (Auto) (0.1-1.2) X10*3/uL Eos # (Auto) (0.0-0.4) X10*3/uL Baso # (Auto) (0.0-0.2) X10*3/uL Abs Immat Gran (auto) (0.00-0.03) X10*3/uL Absolute Neuts (auto) (2.0-8.3) x10*3/uL Absolute Nucleated RBC (0.0-0.012) X10*3/uL Nucleated RBC % (auto) (0.0-0.2) /100WBC Sodium 138 (135-145) mmol/L Potassium 3.7 (3.3-5.1) mmol/L Chloride 105 (96-108) mmol/L Carbon Dioxide 24 (22-29) mmol/L Anion Gap 13 (12-20) BUN 10 (9-16) mg/dL Creatinine 0.93 (0.5-1.4) mg/dL Estim Creat Clear Calc 129.3 Estimated GFR > 60 Random Glucose 102 (60-115) mg/dL Calcium 9.5 (8.4-10.2) mg/dL Total Bilirubin 0.6 (0.0-1.0) mg/dL AST 14 (5-37) U/L ALT 18 (0-40) U/L Alkaline Phosphatase 79 (39-117) U/L Total Protein 7.2 (6.5-8.0) g/dL Albumin 4.5 (3.5-5.0) g/dL COVID-19 ([facility]O) (Negative) COVID-19 Clin Com S. pyogenes GrpA [place] (Negative) Discharge Plan Discharge Clinical Impression: Normal physical exam Patient Disposition: Home, Self-Care Instructions: Normal Exam (ED) Additional Instructions: Please follow-up with your primary care physician tomorrow. If you have any worsening or new symptoms, please return to the emergency room or call 911 Prescriptions: No Action omeprazole magnesium [Prilosec OTC] 20 mg tablet,delayed release (DR/EC) 20 mg PO DAILY 21 Days Qty: 21 0RF Gaviscon Extra Strength 254-237.5 mg/5 mL suspension 10 ml PO QID PRN (Reason: dyspepsia) Qty: 355 0RF azithromycin 250 mg tablet See Rx Instructions .ROUTE .COMPLEX Qty: 6 0RF Rx Instructions: For 250 mg dose pack: take 500 mg today (day 1), then 250 mg for 4 days (days 2-5) omeprazole 20 mg capsule,delayed release(DR/EC) 20 mg PO DAILY 14 Days Qty: 14 0RF
== END 2021-12-17 05:47 | disposition home or self-care (01) ==
PROVIDERS: Emergency Provider Emergency Medicine
DX: Z03.822 Encounter for observation for suspected aspirated (inhaled) foreign body ruled out (principal); R06.02 Shortness of breath; Z20.822 Contact with and (suspected) exposure to COVID-19
CPT/HCPCS: 36415; 71045; 80053; 85025; 87635; 87651; 93005; 99282; 99283

== ENCOUNTER 2022-01-25 19:34 | Emergency (ER) | payer MEDICAID, OTHER, SELFPAY ==
[2022-01-25 20:31] VITALS: BP 135/83; PULSE 70; RESP 18; TEMP 36.6; O2SAT 98; BMI 29.7
[2022-01-25 20:44] LABS: MANUAL DIFF FLAG NO
[2022-01-25 20:45] LABS: Basophils Percent Auto 0.4 % (0-2); Eosinophils Absolute Auto 0.1 X10*3/uL (0.0-0.4); Eosinophils Percent Auto 0.6 % (0-4); Hematocrit 41.6 % (42.0-52.0); Hemoglobin 14.5 g/dl (14.0-18.0); Imm Gran Abs Auto 0.03 X10*3/uL (0.00-0.03); Imm Gran Pct Auto 0.3 % (0.0-0.4); Lymphocytes Absolute Auto 1.6 X10*3/uL (1.2-4.9); Lymphocytes Percent Auto 14.7 % (20-40); Mean Corpuscular HGB Conc 34.9 g/dl (31.0-36.0); Mean Corpuscular Hemoglobin 29.8 pg (27.0-33.0); Mean Corpuscular Volume 85.6 fL (80.0-98.0); Mean Platelet Volume 11.8 fL (9.4-12.4); Monocytes Absolute Auto 0.5 X10*3/uL (0.1-1.2); Monocytes Percent Auto 4.8 % (2-11); Neutrophils Absolute Auto 8.5 x10*3/uL (2.0-8.3); Neutrophils Percent Auto 79.2 % (45-73); Platelet Count 199 X10*3/uL (160-400); Red Blood Count 4.86 X10*6/uL (4.60-5.80); Red Cell Distribution Width 12.9 % (11.0-16.0); White Blood Count 10.7 X10*3/uL (4.8-10.8)
[2022-01-25 21:01] LABS: COVID-19 Test Negative (Negative); IDNOW Serial# 16C4AD1C
[2022-01-25 21:06] LABS: Alanine Aminotransferase 19 U/L (0-40); Albumin Level 4.6 g/dL (3.5-5.0); Alkaline Phosphatase 86 U/L (39-117); Anion Gap 16 (12-20); Aspartate Amino Transferase 15 U/L (5-37); Bilirubin Direct 0.2 mg/dL (0.0-0.5); Bilirubin Total 0.7 mg/dL (0.0-1.0); Blood Urea Nitrogen 9 mg/dL (9-16); Calcium 9.7 mg/dL (8.4-10.2); Carbon Dioxide 24 mmol/L (22-29); Chloride 104 mmol/L (96-108); Creatinine Clr Calc Pharmacy 136.4; Estimated Glomerular Filt Rate > 60; Glucose Random 106 mg/dL (60-115); Potassium 3.7 mmol/L (3.3-5.1); Sodium 140 mmol/L (135-145); Total Protein 7.4 g/dL (6.5-8.0)
--- NOTE | 2022-01-25 23:58 | ED.HA ---
HPI - Headache General Chief Complaint: Headache Stated Complaint: Headache Time Seen by Provider: 01/25/22 23:56 Source: patient Mode of arrival: ambulatory Limitations: no limitations History of Present Illness HPI Narrative: Patient is 26 years old with no significant past medical history says that he has heartburn with poor sleep for last few days headache is diffuse no nausea no vomiting no fever no chills no neck pain no relation of the headache with posture change no vision changes no fever or chills patient denies any stress no history of migraine the family Related Data Previous Rx's Medication Instructions Recorded azithromycin 250 mg tablet See Rx Instructions PO .COMPLEX #6 07/16/21 tabs omeprazole 20 mg capsule,delayed 20 mg PO DAILY 14 days #14 caps 07/16/21 release omeprazole magnesium 20 mg 20 mg PO DAILY 3 weeks #21 tabs 10/25/21 tablet,delayed release (Prilosec OTC) aluminum hydrox-magnesium carb 254 10 ml PO QID PRN dyspepsia #355 mL 11/23/21 mg-237.5 mg/5 mL oral suspension (Gaviscon Extra Strength) [id number]-qyfxnastmesbe-hqzxlyqz 1 cap PO Q6H PRN headache #20 caps 01/26/22 50 mg-300 mg-40 mg capsule (Fioricet) zolpidem 5 mg tablet (Ambien) 5 mg PO BEDTIME PRN sleep #14 tabs 01/26/22 Allergies Allergy/AdvReac Type Severity Reaction Status Date / Time No Known Allergies Allergy Verified 11/23/21 05:36 PMFSH Past Medical History Medical History Arthritis Chronic GERD Social History Social History Alcohol intake: current Alcohol intake frequency: holidays/special occasions only Patient Tobacco Use Status: Never used Tobacco Use of substances other than those prescribed or required for medical reasons: No Advance Directives: No Physical Exam Vital Signs: Vital Signs: Last Vital Signs Temp 97.8 F 01/25/22 20:31 Pulse 66 01/26/22 00:08 Resp 14 01/26/22 00:08 BP 137/86 01/26/22 00:08 Pulse Ox 99 01/26/22 00:08 O2 Del Method 01/26/22 00:08 BMI result Body Mass Index 29.7 Appearance: Alert. Oriented X3. No acute distress. Eyes: PERRLA, No Nystagmus ENT: Pharynx normal. Oral Mucosa moist no temporal artery tenderness Neck: Normal inspection. Neck supple. CVS: Normal heart rate and rhythm. Pulses normal. Respiratory: No respiratory distress. Equal air entry bilateral, no wheezing/rales/rhonchi Abdomen: Soft and nontender. Bowel sounds are present, no mass palpable, no CVA tenderness Skin: Skin warm and dry. Normal skin color. Normal skin turgor. Extremities: No lower extremity edema. No calf tenderness Neuro: Oriented X 3. No motor deficit. No sensory deficit.No cerebellar signs , cranial nerves II-XII intact MDM - Headache Lab Data Attestation: I reviewed the patient's lab results. Result diagrams: 01/25/22 20:38 01/25/22 20:38 Labs: Lab Results 01/25/22 01/25/22 01/25/22 Range/Units 20:38 20:38 20:38 WBC 10.7 (4.8-10.8) X10*3/uL RBC 4.86 (4.60-5.80) X10*6/uL Hgb 14.5 (14.0-18.0) g/dl Hct 41.6 L (42.0-52.0) % MCV 85.6 (80.0-98.0) fL MCH 29.8 (27.0-33.0) pg MCHC 34.9 (31.0-36.0) g/dl RDW 12.9 (11.0-16.0) % Plt Count 199 (160-400) X10*3/uL MPV 11.8 (9.4-12.4) fL Immature Gran % (Auto) 0.3 (0.0-0.4) % Neut % (Auto) 79.2 H (45-73) % Lymph % (Auto) 14.7 L (20-40) % Kleberg % (Auto) 4.8 (2-11) % Eos % (Auto) 0.6 (0-4) % Baso % (Auto) 0.4 (0-2) % Lymph # (Auto) 1.6 (1.2-4.9) X10*3/uL Kleberg # (Auto) 0.5 (0.1-1.2) X10*3/uL Eos # (Auto) 0.1 (0.0-0.4) X10*3/uL Baso # (Auto) 0.0 (0.0-0.2) X10*3/uL Abs Immat Gran (auto) 0.03 (0.00-0.03) X10*3/uL Absolute Neuts (auto) 8.5 H (2.0-8.3) x10*3/uL Absolute Nucleated RBC 0.000 (0.0-0.012) X10*3/uL Nucleated RBC % (auto) 0.0 (0.0-0.2) /100WBC Sodium 140 (135-145) mmol/L Potassium 3.7 (3.3-5.1) mmol/L Chloride 104 (96-108) mmol/L Carbon Dioxide 24 (22-29) mmol/L Anion Gap 16 (12-20) BUN 9 (9-16) mg/dL Creatinine 0.86 (0.5-1.4) mg/dL Estim Creat Clear Calc 136.4 Estimated GFR > 60 Random Glucose 106 (60-115) mg/dL Calcium 9.7 (8.4-10.2) mg/dL Total Bilirubin 0.7 (0.0-1.0) mg/dL Direct Bilirubin 0.2 (0.0-0.5) mg/dL AST 15 (5-37) U/L ALT 19 (0-40) U/L Alkaline Phosphatase 86 (39-117) U/L Total Protein 7.4 (6.5-8.0) g/dL Albumin 4.6 (3.5-5.0) g/dL COVID-19 ([facility]) Negative (Negative) COVID-19 Clin Com See Note Discharge Plan Discharge Clinical Impression: Tension headache Patient Disposition: Home, Self-Care Instructions: Tension Headache (ED) Additional Instructions: You got to sleep well Sleep deprivation can cause this kind of headache Take medication to sleep and for headache as prescribed and follow with PCP if not better Prescriptions: New zolpidem [Ambien] 5 mg tablet 5 mg PO BEDTIME PRN (Reason: sleep) Qty: 14 0RF [id number]-eqtalrzsuuzjg-wqow [Fioricet] 50-300-40 mg capsule 1 cap PO Q6H PRN (Reason: headache) Qty: 20 0RF No Action omeprazole magnesium [Prilosec OTC] 20 mg tablet,delayed release (DR/EC) 20 mg PO DAILY 21 Days Qty: 21 0RF Gaviscon Extra Strength 254-237.5 mg/5 mL suspension 10 ml PO QID PRN (Reason: dyspepsia) Qty: 355 0RF azithromycin 250 mg tablet See Rx Instructions .ROUTE .COMPLEX Qty: 6 0RF Rx Instructions: For 250 mg dose pack: take 500 mg today (day 1), then 250 mg for 4 days (days 2-5) omeprazole 20 mg capsule,delayed release(DR/EC) 20 mg PO DAILY 14 Days Qty: 14 0RF
[2022-01-26 00:08] VITALS: BP 137/86; PULSE 66; RESP 14; O2SAT 99
[2022-01-26] MEDS: Butalb/Acetamin/Caff 50/325/40 TABLET 1 TAB PO (00:14)
[2022-01-26] MEDS: LORazepam 1 MG TABLET PO (00:14)
== END 2022-01-26 00:20 | disposition home or self-care (01) ==
PROVIDERS: Emergency Provider Internal Medicine
DX: G44.209 Tension-type headache, unspecified, not intractable (principal); Z20.822 Contact with and (suspected) exposure to COVID-19
CPT/HCPCS: 80053; 82248; 85025; 87635; 99283; 99284

== ENCOUNTER 2022-05-11 21:36 | Emergency (ER) | payer MEDICAID, OTHER, SELFPAY ==
[2022-05-11 21:43] VITALS: BP 134/82; PULSE 100; RESP 18; TEMP 36.7; O2SAT 100; BMI 32.8
--- NOTE | 2022-05-11 22:25 | ED.GENADULT ---
HPI - General Adult General Chief complaint: General Medical Stated complaint: Blood in stool Time Seen by Provider: 05/11/22 22:25 Source: patient Mode of arrival: ambulatory Limitations: no limitations History of Present Illness HPI narrative: Patient been having streaks of blood for last 1 month off and on with history of constipation no abdominal pain no nausea vomiting Related Data Previous Rx's Medication Instructions Recorded azithromycin 250 mg tablet See Rx Instructions PO .COMPLEX #6 07/16/21 tabs omeprazole 20 mg capsule,delayed 20 mg PO DAILY 14 days #14 caps 07/16/21 release omeprazole magnesium 20 mg 20 mg PO DAILY 3 weeks #21 tabs 10/25/21 tablet,delayed release (Prilosec OTC) aluminum hydrox-magnesium carb 254 10 ml PO QID PRN dyspepsia #355 mL 11/23/21 mg-237.5 mg/5 mL oral suspension (Gaviscon Extra Strength) [id number]-zfzkcvdsrcnkl-frquwseg 1 cap PO Q6H PRN headache #20 caps 01/26/22 50 mg-300 mg-40 mg capsule (Fioricet) zolpidem 5 mg tablet (Ambien) 5 mg PO BEDTIME PRN sleep #14 tabs 01/26/22 docusate sodium 100 mg capsule 200 mg PO DAILY PRN Constipation 05/11/22 (Colace) #60 caps hydrocortisone acetate 25 mg 25 mg [place] BID #24 ea 05/11/22 rectal suppository (Anusol-HC) Allergies Allergy/AdvReac Type Severity Reaction Status Date / Time No Known Allergies Allergy Verified 11/23/21 05:36 Review of Systems Review of Systems: Yes all other systems are reviewed and are negative [facility], [facility] Past Medical History Medical History Arthritis Chronic GERD Social History Social History Alcohol intake: current Alcohol intake frequency: holidays/special occasions only Patient Tobacco Use Status: Never used Tobacco Advance Directives: No Advance Directives Information Provided: No Physical Exam ED Vital Signs: Vital Signs - 24 hr 05/11/22 21:43 Temperature 98.1 F Pulse Rate 100 Respiratory Rate 18 Blood Pressure 134/82 Pulse Oximetry 100 Oxygen Delivery Method Room Air BMI result Body Mass Index 32.8 Appearance: Alert. Oriented X3. No acute distress. Eyes: PERRLA, No Nystagmus ENT: Pharynx normal. Oral Mucosa moist Neck: Normal inspection. Neck supple. CVS: Normal heart rate and rhythm. Pulses normal. Respiratory: No respiratory distress. Equal air entry bilateral, no wheezing/rales/rhonchi Abdomen: Soft and nontender. Bowel sounds are present, no mass palpable, no CVA tenderness rectal; deferred by patient Skin: Skin warm and dry. Normal skin color. Normal skin turgor. Extremities: No lower extremity edema. No calf tenderness Neuro: Oriented X 3. No motor deficit. No sensory deficit.No cerebellar signs , cranial nerves II-XII intact Medical Decision Making Medical Decision Making MDM Narrative: Patient clinically with hemorrhoidal bleed saw the picture of the blood which she brought with himself stool was brown color was bright red blood advised patient to avoid constipation and use anusol supp Discharge Plan Discharge Clinical Impression: Hemorrhoids Patient Disposition: Home, Self-Care Instructions: Hemorrhoids (ED) Additional Instructions: Avoid constipation/straining Anusol suppository twice daily as prescribed Stool softener as prescribed Follow with PCP Prescriptions: New hydrocortisone acetate [Anusol-HC] 25 mg suppository 25 mg [place] BID Qty: 24 0RF docusate sodium [Colace] 100 mg capsule 200 mg PO DAILY PRN (Reason: Constipation) Qty: 60 0RF No Action omeprazole magnesium [Prilosec OTC] 20 mg tablet,delayed release (DR/EC) 20 mg PO DAILY 21 Days Qty: 21 0RF Gaviscon Extra Strength 254-237.5 mg/5 mL suspension 10 ml PO QID PRN (Reason: dyspepsia) Qty: 355 0RF zolpidem [Ambien] 5 mg tablet 5 mg PO BEDTIME PRN (Reason: sleep) Qty: 14 0RF [id number]-pkrwwxkyqmkyx-vxue [Fioricet] 50-300-40 mg capsule 1 cap PO Q6H PRN (Reason: headache) Qty: 20 0RF azithromycin 250 mg tablet See Rx Instructions .ROUTE .COMPLEX Qty: 6 0RF Rx Instructions: For 250 mg dose pack: take 500 mg today (day 1), then 250 mg for 4 days (days 2-5) omeprazole 20 mg capsule,delayed release(DR/EC) 20 mg PO DAILY 14 Days Qty: 14 0RF Interventions: ED Discharge Assessment Last Done: 05/11/22 23:51 Discharge Date/Time: 05/11/22 23:52
== END 2022-05-11 23:52 | disposition home or self-care (01) ==
PROVIDERS: Emergency Provider Internal Medicine
DX: K64.9 Unspecified hemorrhoids (principal); K92.1 Melena; Z79.899 Other long term (current) drug therapy
CPT/HCPCS: 99282; 99283

== ENCOUNTER 2022-06-18 22:28 | Emergency (ER) | payer MEDICAID, OTHER, SELFPAY ==
[2022-06-18 22:30] VITALS: BP 141/89; PULSE 94; RESP 20; TEMP 36.4; O2SAT 99; BMI 32.5
--- NOTE | 2022-06-18 22:32 | ECG_ITS ---
Test Reason : EPIGASTRIC PAIN Blood Pressure : / mmHG Vent. Rate : 091 BPM Atrial Rate : 091 BPM P-R Int : 144 ms QRS Dur : 096 ms QT Int : 336 ms P-R-T Axes : 061 058 052 degrees QTc Int : 413 ms Normal sinus rhythm with sinus arrhythmia Normal ECG When compared with ECG of 17-DEC-2021 04:34, No significant change was found Referred By: Generic ED Physician Electronically Signed By:JAMSE MCQUEEN MD
--- NOTE | 2022-06-18 22:48 | ED_ITS ---
HPI - General Adult General Chief complaint: General Medical Stated complaint: Short of breath Time Seen by Provider: 06/18/22 22:47 Source: patient Mode of arrival: ambulatory Limitations: no limitations History of Present Illness HPI narrative: Patient is a 27 year old assigned male at with a history of GERD presenting to the emergency department today with intermittent chest pain and phlegm feeling in his throat. Patient states that since November of 2021 he has had intermittent chest pain and constant feeling of phlegm in his throat that he has to clear. Patient states that he already follows with a GI provider who confirmed his GERD diagnosis and he is taking a total of 80mg of Omeprazole a day. Patient denies any dizziness, lightheadedness, abdominal pain, nausea, vomiting, fever, chills, blurry vision, double vision, loss of vision, difficulty breathing, shortness of breath, back pain, night sweats, pain with urination, increased urinary frequency, increased urinary urgency, blood in his urine or stool, syncope or a near syncopal episode, recent trauma or falls, bowel incontinence, bladder incontinence, bowel retention, bladder retention, or any other complaints at this time. Onset (ago): month(s) Location: chest Radiation: non-radiation Severity: mild Severity scale (1-10): 2 Quality: aching Pain Consistency: intermittent Relieving factors: none Exacerbating factors: none Associated symptoms: denies other symptoms Treatments prior to arrival: none Related Data Previous Rx's Medication Instructions Recorded azithromycin 250 mg tablet See Rx Instructions PO .COMPLEX #6 07/16/21 tabs omeprazole 20 mg capsule,delayed 20 mg PO DAILY 14 days #14 caps 07/16/21 release omeprazole magnesium 20 mg 20 mg PO DAILY 3 weeks #21 tabs 10/25/21 tablet,delayed release (Prilosec OTC) aluminum hydrox-magnesium carb 254 10 ml PO QID PRN dyspepsia #355 mL 11/23/21 mg-237.5 mg/5 mL oral suspension (Gaviscon Extra Strength) ntnujifzyn-ffdbmhcmvchoq-gorswjfm 1 cap PO Q6H PRN headache #20 caps 01/26/22 50 mg-300 mg-40 mg capsule (Fioricet) zolpidem 5 mg tablet (Ambien) 5 mg PO BEDTIME PRN sleep #14 tabs 01/26/22 docusate sodium 100 mg capsule 200 mg PO DAILY PRN Constipation 12/13/22 (Colace) #60 caps hydrocortisone acetate 25 mg 25 mg LA BID #24 ea 05/11/22 rectal suppository (Anusol-HC) Allergies Allergy/AdvReac Type Severity Reaction Status Date / Time No Known Allergies Allergy Verified 11/23/21 05:36 Review of Systems Constitutional: Constitutional: Reports no additional constitutional complaints, Denies chills, Denies fever(s) and Denies night sweats Eyes: Eyes: Reports no additional eye complaints, Denies blurry vision, Denies change in vision, Denies diplopia, Denies eye discharge, Denies loss of vision and Denies eye pain ENT: Denies dizziness Cardiovascular: Cardiovascular: Reports no additional cardiovascular complaints, Reports chest pain (intermittently), Denies lightheadedness, Denies Loss of Consciousness and Denies dyspnea Respiratory: Respiratory: Reports no additional respiratory complaints and Denies dyspnea Gastrointestinal: Gastrointestinal: Reports no additional gastrointestinal complaints, Denies abdominal pain, Denies melena, Denies hematochezia, Denies change in bowel habits and Denies change in stool character Genitourinary: Genitourinary: Reports no additional male genitourinary complaints, Denies hematuria, Denies oliguria, Denies difficulty urinating, Denies dysuria, Denies urinary frequency, Denies urinary hesitancy, Denies urinary incontinence and Denies urinary urgency Musculoskeletal: Musculoskeletal: Reports no additional musculoskeletal complaints, Denies numbness and Denies tingling Neurologic: Denies dizziness, Denies loss of vision, Denies numbness and Denies tingling Psychiatric: Psychiatric: Reports no additional psychiatric complaints Endocrine: Endocrine: Reports no additional endocrine complaints Hematologic/Lymphatic: Hematologic/Lymphatic: Reports no additional hematologic/lymphatic complaints Allergic/Immunologic: Allergic/Immunologic: Reports no additional allergic/immunologic complaints PMFSH Past Medical History Attestation statement: The following information was validated with the patient. Source: old records reviewed and nursing notes reviewed Medical History Arthritis Chronic GERD Social History Social History Alcohol intake: current Alcohol intake frequency: holidays/special occasions only Patient Tobacco Use Status: Never used Tobacco Advance Directives: No Physical Exam ED Vital Signs: Vital Signs - 24 hr 06/18/22 22:30 06/18/22 23:44 Temperature 97.5 F Pulse Rate 94 80 Respiratory Rate 20 12 Blood Pressure 141/89 H 110/69 Pulse Oximetry 99 98 Oxygen Delivery Method Room Air Room Air BMI result Body Mass Index 32.5 Const General: cooperative, no acute distress, alert and awake Nutritional Appearance: well nourished Orientation/consciousness: patient oriented x3 Limitations: no limitations HENMT Head: Yes normal to inspection and Yes atraumatic Ears: hearing grossly normal bilaterally and external ears normal General nose exam: Normal external nose present, no nasal discharge noted and no epistaxis Face and sinus: Yes normal facial exam, No abrasion and No laceration Mouth: Normal oral and palatal mucosa present, no drooling and no muffled voice Eyes General: appearance normal, both eyes and all related structures Periorbital: periorbital findings normal Eyelids: Yes eyelids normal Conjunctivae: conjunctivae normal Pupils: Equal, round and reactive pupils present EOM: EOMs intact bilaterally Neck Neck: Yes normal visual inspection, Yes full ROM and Yes no lymphadenopathy Chest Chest palpation & inspection: normal inspection of the chest Resp Effort & Inspection: normal respiratory effort and able to speak in complete sentences Auscultation: clear to auscultation bilaterally Cardio Rate: regular rate Rhythm: regular rhythm GI Inspection: Yes normal to inspection Palpation (GI): Soft to palpation, not firm, nontender, no guarding and not rigid Neuro General: patient oriented x3 and moves all extremities Cranial nerves: Yes Equal, round and reactive pupils present Cognition (Neuro): normal cognition Motor exam (neuro): 5/5 motor strength present throughout Sensory Exam: Normal double simultaneous stimulation for sensation Coordination: wgghqn-eu-[id number] test normal Extrem General: Yes normal to inspection, Yes full ROM and Yes capillary refill normal Psych Appearance: grossly normal Mental Status: mental status grossly normal Affect: normal affect Attitude: cooperative Thought process: Normal thought process present Thought content: Normal thought content present Insight: Good insight present (Psych) Medications Administered Discontinued Medications Generic Name Dose Route Start Last Admin Trade Name Freq PRN Reason Stop Dose Admin Al Hydroxide/Mg Hydroxide 15 ml 06/18/22 23:02 06/18/22 23:38 Magnesium Hydrox/Alum Hydrox 30 Ml Oral.Susp PO 06/18/22 23:03 15 ml ONCE ONE Administration Ketorolac Tromethamine 15 mg 06/18/22 22:48 06/18/22 23:39 Ketorolac Tromethamine 15 Mg/Ml Vial IM 06/18/22 22:49 15 mg ONCE ONE Administration Lidocaine HCl 15 ml 06/18/22 23:02 06/18/22 23:38 Lidocaine Hcl Viscous 2 % 15 Ml Solution MUCOUS MEM 06/18/22 23:03 15 ml ONCE ONE Administration Medical Decision Making Medical Decision Making [facility] Narrative: Patient is a 27 year old assigned male at with a history of GERD presenting to the emergency department today with intermittent chest pain. Patient's physical exam was unremarkable. Patient's blood work was unremarkable. Patient's EKG was unremarkable. I explained my physical exam findings as well as all test results to the patient. I answered all questions asked by the patient. I stressed the importance of the patient taking his medication as prescribed. I stressed the importance of the patient following up with his primary care provider and his GI provider. I stressed the importance of the patient returning to the emergency department immediately if his symptoms were to worsen or if he were to develop any dizziness, shortness of breath, difficulty breathing, chest pain, blurry vision, loss of vision, nausea, vomiting, abdominal pain, fever, chills, back pain, or any other complaints. Patient verbalized agreement and understanding with this treatment plan and discharge. Differential Diagnosis Differential Diagnoses: The differential diagnosis associated with the prese ntation includes GERD, intermittent chest pain Lab Data [facility] Lab Attestation statement: I reviewed the patient's lab results. 06/18/22 23:51 06/18/22 23:51 Labs: Lab Results 06/18/22 06/18/22 06/18/22 Range/Units 23:51 23:51 23:51 WBC 6.2 (4.8-10.8) X10*3/uL RBC 4.84 (4.60-5.80) X10*6/uL Hgb 14.5 (14.0-18.0) g/dl Hct 41.8 L (42.0-52.0) % MCV 86.4 (80.0-98.0) fL MCH 30.0 (27.0-33.0) pg MCHC 34.7 (31.0-36.0) g/dl RDW 13.8 (11.0-16.0) % Plt Count 191 (160-400) X10*3/uL MPV 11.5 (9.4-12.4) fL Immature Gran % (Auto) 0.6 H (0.0-0.4) % Neut % (Auto) 49.9 (45-73) % Lymph % (Auto) 37.7 (20-40) % [place] % (Auto) 9.4 (2-11) % Eos % (Auto) 1.8 (0-4) % Baso % (Auto) 0.6 (0-2) % Lymph # (Auto) 2.3 (1.2-4.9) X10*3/uL [place] # (Auto) 0.6 (0.1-1.2) X10*3/uL Eos # (Auto) 0.1 (0.0-0.4) X10*3/uL Baso # (Auto) 0.0 (0.0-0.2) X10*3/uL Abs Immat Gran (auto) 0.04 H (0.00-0.03) X10*3/uL Absolute Neuts (auto) 3.1 (2.0-8.3) x10*3/uL Absolute Nucleated RBC 0.000 (0.0-0.012) X10*3/uL Nucleated RBC % (auto) 0.0 (0.0-0.2) /100WBC Sodium 139 (135-145) mmol/L Potassium 3.6 (3.3-5.1) mmol/L Chloride 105 (96-108) mmol/L Carbon Dioxide 26 (22-29) mmol/L Anion Gap 12 (12-20) BUN 14 (9-16) mg/dL Creatinine 1.15 (0.5-1.4) mg/dL Estim Creat Clear Calc 105.6 Estimated GFR > 60 Random Glucose 106 (60-115) mg/dL Calcium 9.4 (8.4-10.2) mg/dL Magnesium 2.0 (1.6-2.6) mg/dL Total Bilirubin 0.3 (0.0-1.0) mg/dL AST 24 (5-37) U/L ALT 43 H (0-40) U/L Alkaline Phosphatase 87 (39-117) U/L Troponin I High Sens < 3.5 (<3.5-35.0) ng/L Total Protein 6.8 (6.5-8.0) g/dL Albumin 4.3 (3.5-5.0) g/dL COVID-19 ([facility]) (Negative) COVID-19 Clin Com Influenza Type A ([facility]) (Negative) Influenza Type B ([facility]) (Negative) Influenza A & B Note 06/18/22 06/18/22 Range/Units 23:51 23:51 WBC (4.8-10.8) X10*3/uL RBC (4.60-5.80) X10*6/uL Hgb (14.0-18.0) g/dl Hct (42.0-52.0) % MCV (80.0-98.0) fL MCH (27.0-33.0) pg MCHC (31.0-36.0) g/dl RDW (11.0-16.0) % Plt Count (160-400) X10*3/uL MPV (9.4-12.4) fL Immature Gran % (Auto) (0.0-0.4) % Neut % (Auto) (45-73) % Lymph % (Auto) (20-40) % [place] % (Auto) (2-11) % Eos % (Auto) (0-4) % Baso % (Auto) (0-2) % Lymph # (Auto) (1.2-4.9) X10*3/uL [place] # (Auto) (0.1-1.2) X10*3/uL Eos # (Auto) (0.0-0.4) X10*3/uL Baso # (Auto) (0.0-0.2) X10*3/uL Abs Immat Gran (auto) (0.00-0.03) X10*3/uL Absolute Neuts (auto) (2.0-8.3) x10*3/uL Absolute Nucleated RBC (0.0-0.012) X10*3/uL Nucleated RBC % (auto) (0.0-0.2) /100WBC Sodium (135-145) mmol/L Potassium (3.3-5.1) mmol/L Chloride (96-108) mmol/L Carbon Dioxide (22-29) mmol/L Anion Gap (12-20) BUN (9-16) mg/dL Creatinine (0.5-1.4) mg/dL Estim Creat Clear Calc Estimated GFR Random Glucose (60-115) mg/dL Calcium (8.4-10.2) mg/dL Magnesium (1.6-2.6) mg/dL Total Bilirubin (0.0-1.0) mg/dL AST (5-37) U/L ALT (0-40) U/L Alkaline Phosphatase (39-117) U/L Troponin I High Sens (<3.5-35.0) ng/L Total Protein (6.5-8.0) g/dL Albumin (3.5-5.0) g/dL COVID-19 ([facility]) Negative (Negative) COVID-19 Clin Com See Note Influenza Type A ([facility]) Negative (Negative) Influenza Type B ([facility]) Negative (Negative) Influenza A & B Note See Note Independent Interpretation I performed an independent interpretation of an: EKG Interpretation: Vent. Rate: 091 BPM ? ? Atrial Rate: 091 BPM P-R Int: 144 ms? QRS Dur: 096 ms QT Int: 336 ms ? ? ? P-R-T Axes: 061 058 052 degrees QTc Int: 413 ms ? Normal sinus rhythm with sinus arrhythmia Normal ECG When compared with ECG of 17-DEC-2021 04:34, No significant change was found DD/ 2236 Discharge Plan Discharge Clinical Impression: Chest pain Patient Disposition: Home, Self-Care Instructions: Chest Pain (DC) Additional Instructions: Follow up with your primary care provider and your GI provider. Return to the emergency department immediately if your symptoms worsen or if you develop any dizziness, shortness of breath, difficulty breathing, chest pain, blurry vision, loss of vision, nausea, vomiting, abdominal pain, fever, chills, back pain, or any other complaints. Prescriptions: No Action omeprazole magnesium [Prilosec OTC] 20 mg tablet,delayed release (DR/EC) 20 mg PO DAILY 21 Days Qty: 21 0RF Gaviscon Extra Strength 254-237.5 mg/5 mL suspension 10 ml PO QID PRN (Reason: dyspepsia) Qty: 355 0RF zolpidem [Ambien] 5 mg tablet 5 mg PO BEDTIME PRN (Reason: sleep) Qty: 14 0RF zgyzwiluvs-ytcdejbracbiq-yzoh [Fioricet] 50-300-40 mg capsule 1 cap PO Q6H PRN (Reason: headache) Qty: 20 0RF azithromycin 250 mg tablet See Rx Instructions .ROUTE .COMPLEX Qty: 6 0RF Rx Instructions: For 250 mg dose pack: take 500 mg today (day 1), then 250 mg for 4 days (days 2-5) omeprazole 20 mg capsule,delayed release(DR/EC) 20 mg PO DAILY 14 Days Qty: 14 0RF hydrocortisone acetate [Anusol-HC] 25 mg suppository 25 mg LA BID Qty: 24 0RF docusate sodium [Colace] 100 mg capsule 200 mg PO DAILY PRN (Reason: Constipation) Qty: 60 0RF Referrals: [facility] [place] Family Medicine [Provider Group] (Call to establish and follow up with a primary care provider. If you already have a primary care provider, please follow up with them. ) [facility] [place] Primary Care, [place] [Provider Group] (Call to establish and follow up with a primary care provider. If you already have a primary care provider, please follow up with them. ) [facility] [place] Primary Care,[place] [Provider Group] (Call to establish and follow up with a primary care provider. If you already have a primary care provider, please follow up with them. ) Interventions: ED Discharge Assessment Last Done: 06/19/22 00:35 Discharge Date/Time: 06/19/22 00:36 Print Language: Polish
--- OUTSIDE RECORDS SUMMARY | 2022-06-18 22:49 | XMS_ITS | Continuity of Care Document ---
:1995 Author Organization [facility] Address [address] [place] [id number]- Care Team Providers Name Role Phone Not on Staff, PCP Primary Care Physician Unavailable Encounter [facility] Date(s): 10/19/21 - 10/19/[address] [address]- Encounter Diagnosis Chronic GERD (Final) - 10/19/21 Discharge Disposition: A-D/C Home Referring Physician: Not on Staff, Referring MD Allergies, Adverse Reactions, Alerts No Known Allergies Medications famotidine 20 mg oral tablet 20 mg, 1, tablet, By Mouth, 2 times a day, # 180 tablet, Refills 0, Tot. Refills 0, Maintenance, 10/19/21 14:12:00 EDT, Route to Pharmacy Electronically, [facility]/pharmacy #[id number], Partial fill upon patient request if the prescription is for a schedule II op... Start Date: 10/19/21 Status: OrderedTums 500 mg oral tablet, chewable 500 mg, 1, tablet, Chew, 2 times a day, PRN, for acid reflux, # 150 tablet, Refills 0, Tot. Refills 0, Maintenance, Pain , Moderate, 10/19/21 14:13:00 EDT, Route to Pharmacy Electronically, [facility]/pharmacy #[id number], Partial fill upon patient request if the... Start Date: 10/19/21 Status: Ordered Problem List Condition Effective Dates Status Health Status Informant Obese class I(Confirmed) Active Results Radiology Reports Exam Date Time Procedure Performing Provider Status 10/19/21 9:13 AM Chest 2 Views Frontal and Lat Angelica Reyna (Verified) Notes:(Chest 2 Views Frontal and Lat) Reason For Exam: Chest Pain;Other:RESULT: Chest 2 Views Frontal and Lat Chest 2 Views Frontal and Lat Hx of Present Illness: Chest pain intermitent for 2 months; Reason: Other:; Chest Pain; Clinical Question(s): Other: COMPARISON: 09/12/2021 FINDINGS: LINES AND TUBES: None. HEART, MEDIASTINUM AND NITA: Heart is normal in size. Normal mediastinal and hilar contour. LUNGS AND PLEURA: Clear lungs. Normal pulmonary vascularity. No pleural effusion. No pneumothorax. BONES AND SOFT TISSUES: No acute abnormality. IMPRESSION: No acute cardiopulmonary process. No significant change. WSN: [id number] Ordering Physician: Daniela Santos Dictated By: Rufus Aguirre MD Dictated Date/Time: 10/19/21 9:15 am Reviewed By: Rufus Aguirre MD Signed By: Rufus Aguirre MD Signed Date/Time: 10/19/21 9:15 am Transcribed By: KAYLIE Transcribed Date/Time: 10/19/21 9:14 am Vital Signs Most recent to oldest 1 2 3 [Reference Range]: Height 170 cm (10/19/21 8:50 AM) Weight 96.3 kg (10/19/21 8:50 AM) Oxygen Saturation [94-100 %] 100 % 100 % 100 % (10/19/21 2:03 PM) (10/19/21 11:34 AM) (10/19/21 8: 50 AM) Pulse Rate [55-90 bpm] 74 bpm 88 bpm 80 bpm (10/19/21 2:03 PM) (10/19/21 11:34 AM) (10/19/21 8: 50 AM) Body Mass Index [18.5-24.99] 33.32 *>HHI* (10/19/21 8:50 AM) Blood Pressure [90-138/55-84 126/73 mm Hg 132/80 mm Hg 124 /68 mm Hg mm Hg] (10/19/21 2:03 PM) (10/19/21 11:34 AM) (10/19/21 8: 50 AM) Respiratory Rate [16-30 16 br/min 16 br/min br/min] (10/19/21 8:50 AM) (10/19/21 8:41 AM) Temperature [96.8-100.4 DegF] 97.7 DegF 97.8 DegF 98 .2 DegF (10/19/21 2:03 PM) (10/19/21 11:34 AM) (10/19/21 8: 50 AM) Mode of Delivery (Oxygen) Room air Room air Room a ir (10/19/21 2:03 PM) (10/19/21 11:34 AM) (10/19/21 8: 50 AM) Blood pressure sites Arm, right Arm, left Arm, right (10/19/21 2:03 PM) (10/19/21 11:34 AM) (10/19/21 8: 50 AM) Temperature Route Oral Oral Oral (10/19/21 2:03 PM) (10/19/21 11:34 AM) (10/19/21 8: 50 AM) Dry Weight 96.3 kg (10/19/21 8:50 AM) Weight Obtained Via Standing scale (10/19/21 8:50 AM) Dry Weight Obtained Via Standing scale (10/19/21 8:50 AM)
--- OUTSIDE RECORDS SUMMARY | 2022-06-18 22:49 | XMS_ITS | Continuity of Care Document ---
:1995 Author Organization [facility] Address Unavailable , Care Team Providers Name Role Phone Not on Staff, PCP Primary Care Physician Unavailable [place] [facility] [place] [facility] Allergies, Adverse Reactions, Alerts No Known Allergies Medications famotidine 20 mg oral tablet 20 mg, 1, tablet, By Mouth, 2 times a day, # 180 tablet, Refills 0, Tot. Refills 0, Maintenance, 10/19/21 14:12:00 EDT, Route to Pharmacy Electronically, [facility]/pharmacy #[id number], Partial fill upon patient request if the prescription is for a schedule II op... Start Date: 10/19/21 Status: OrderedTums 500 mg oral tablet, chewable 500 mg, 1, tablet, Chew, 2 times a day, PRN, for acid reflux, # 150 tablet, Refills 0, Tot. Refills 0, Maintenance, Pain , Moderate, 10/19/21 14:13:00 EDT, Route to Pharmacy Electronically, [facility]/pharmacy #[id number], Partial fill upon patient request if the... Start Date: 10/19/21 Status: Ordered Problem List Condition Effective Dates Status Health Status Informant Obese class I(Confirmed) Active
--- OUTSIDE RECORDS SUMMARY | 2022-06-18 22:49 | XMS_ITS | Continuity of Care Document ---
:1995 Author Organization [facility] Address [address] [place] [id number]- Care Team Providers Name Role Phone Not on Staff, PCP Primary Care Physician Unavailable Encounter [facility] [place] Date(s): 11/26/21 - 11/26/[address] [address]- Discharge Disposition: A-D/C Home Attending Physician: Jean-Paul Qiu MD Admitting Physician: Jean-Paul Qiu MD Referring Physician: Not on Staff, Referring MD Allergies, Adverse Reactions, Alerts No Known Allergies Medications aluminum hydroxide/magnesium hydroxide/simethicone 200 mg-200 mg-20 mg/5 mL oral suspension 10 mL, By Mouth, 3 times a day, PRN for indigestion, for 5 days, # 360 mL, 0 Refills, Acute :45:00 EDT, 11/26/21 4:45:00 EDT, Suspension, [facility]/pharmacy #[id number], Partial fill upon patient requestif the prescription is for a schedule II opioid d... Start Date: 11/26/21 Stop Date: 12/01/21 Status: Orderedfamotidine 20 mg oral tablet 20 mg, 1, tablet, By Mouth, 2 times a day, # 180 tablet, Refills 0, Tot. Refills 0, Maintenance, 10/19/21 14:12:00 EDT, Route to Pharmacy Electronically, [facility]/pharmacy #[id number], Partial fill upon patient request if the prescription is for a schedule II op... Start Date: 10/19/21 Status: OrderedTums 500 mg oral tablet, chewable 500 mg, 1, tablet, Chew, 2 times a day, PRN, for acid reflux, # 150 tablet, Refills 0, Tot. Refills 0, Maintenance, Pain , Moderate, 10/19/21 14:13:00 EDT, Route to Pharmacy Electronically, [facility]/pharmacy #[id number], Partial fill upon patient request if the... Start Date: 10/19/21 Status: Ordered Problem List Condition Effective Dates Status Health Status Informant Obese class I(Confirmed) Active Results Radiology Reports Exam Date Time Procedure Performing Provider Status 11/26/21 4:34 AM Chest 2 Views Frontal and Lat Ya Erwin [facility] (Verified) Notes:(Chest 2 Views Frontal and Lat) Reason For Exam: Other:RESULT: Chest 2 Views Frontal and Lat Chest 2 Views Frontal and Lat Hx of Present Illness: Pt reports midsternal burning CP esophagus burning pain that will come and goas well as start in LLQ and radiate to mid abd - reports ongoing since Jun, has been on GI meds for heartburn but feels no relief and just worsening pain - denies vomitting but; Reason: Other:; Clinical Question(s): Pneumonia COMPARISON: 10/19/2021 FINDINGS: No acute cardiopulmonary process IMPRESSION: No acute abnormality. WSN: [id number] Ordering Physician: Lora Heck Dictated By: Jayce Stone MD Dictated Date/Time: 11/26/21 7:47 am Reviewed By: Jayce Stone MD Signed By: Jayce Stone MD Signed Date/Time: 11/26/21 7:47 am Transcribed By: KAYLIE Transcribed Date/Time: 11/26/21 7:46 am Vital Signs Most recent to oldest [Reference Range]: 1 2 Oxygen Saturation [94-100 %] 100 % 100 % (11/26/21 2:18 AM) (11/26/21 2:04 AM) Pulse Rate [55-90 bpm] 75 bpm 79 bpm (11/26/21 2:18 AM) (11/26/21 2:04 AM) Blood Pressure [90-138/55-84 mm Hg] 126/66 mm Hg (11/26/21 2:18 AM) Respiratory Rate [16-30 br/min] 16 br/min 16 br/mi n (11/26/21 2:18 AM) (11/26/21 2:04 AM) Temperature [96.8-100.4 DegF] 98.6 DegF (11/26/21 2:18 AM) Mode of Delivery (Oxygen) Room air Room air (11/26/21 2:18 AM) (11/26/21 2:04 AM) Blood pressure sites Arm, right (11/26/21 2:18 AM) Temperature Route Oral (11/26/21 2:18 AM)
--- OUTSIDE RECORDS SUMMARY | 2022-06-18 22:49 | XMS_ITS | Continuity of Care Document ---
:1995 Author Organization [facility] Address [address] [place] [id number]- Care Team Providers Name Role Phone Not on Staff, PCP Primary Care Physician Unavailable [place] [facility] [place] - 01/28/[address] [address]- Discharge Disposition: A-D/C Home Attending Physician: Omar DOLAN, Madelin Gibson Admitting Physician: Madelin Nelson MD Referring Physician: Not on Staff, Referring MD Allergies, Adverse Reactions, Alerts No Known Allergies Medications famotidine 20 mg oral tablet 20 mg, 1, tablet, By Mouth, 2 times a day, # 180 tablet, Refills 0, Tot. Refills 0, Maintenance, 10/19/21 14:12:00 EDT, Route to Pharmacy Electronically, [facility]/pharmacy #[id number], Partial fill upon patient request if the prescription is for a schedule II op... Start Date: 10/19/21 Status: OrderedOmeprazole By Mouth, Daily, 0 Refills, Maintenance, 12/26/21 2:27:00 EDT, Partial fill upon patient request if the prescription is for a schedule II opioid drug. Start Date: 12/26/21 Status: OrderedTums 500 mg oral tablet, chewable 500 mg, 1, tablet, Chew, 2 times a day, PRN, for acid reflux, # 150 tablet, Refills 0, Tot. Refills 0, Maintenance, Pain , Moderate, 10/19/21 14:13:00 EDT, Route to Pharmacy Electronically, [facility]/pharmacy #[id number], Partial fill upon patient request if the... Start Date: 10/19/21 Status: Ordered Problem List Condition Effective Dates Status Health Status Informant Obese class I(Confirmed) Active Vital Signs Most recent to oldest [Reference 1 2 3 Range]: Oxygen Saturation [94-100 %] 100 % 100 % 100 % (01/28/22 1:06 PM) (01/28/22 11:43 AM) (01/28/22 8:43 AM) Pulse Rate [55-90 bpm] 67 bpm 75 bpm 61 bpm (01/28/22 1:06 PM) (01/28/22 11:43 AM) (01/28/22 8:43 AM) Blood Pressure [90-138/55-84 mm 130/76 mm Hg 122/59 mm Hg 117/72 mm Hg Hg] (01/28/22 1:06 PM) (01/28/22 11:43 AM) (01/28/22 8:43 AM) Respiratory Rate [16-30 br/min] 18 br/min 12 br/min (01/28/22 1:06 PM) *L* (01/28/22 11:43 AM) Temperature [96.8-100.4 DegF] 98.2 DegF 97.0 DegF 97 .8 DegF (01/28/22 11:43 AM) (01/28/22 8:43 AM) (01/28/22 4:47 AM) Mode of Delivery (Oxygen) Room air Room air Room a ir (01/28/22 1:06 PM) (01/28/22 11:43 AM) (01/28/22 8:43 AM) Blood pressure sites Arm, right Arm, right Arm, right (01/28/22 1:06 PM) (01/28/22 11:43 AM) (01/28/22 8:43 AM) Temperature Route Oral Temporal Temporal (01/28/22 11:43 AM) (01/28/22 8:43 AM) (01/28/22 4:47 AM) Care Team PersonnelName: Not on Staff, PCP
--- OUTSIDE RECORDS SUMMARY | 2022-06-18 22:49 | XMS_ITS | Continuity of Care Document ---
:1995 Author Organization [facility] Address [address] [place] [id number]- Care Team Providers Name Role Phone Not on Staff, PCP Primary Care Physician Unavailable Encounter [facility] [place] Date(s): 12/26/21 - 12/26/[address] [address]- Encounter Diagnosis Chest tightness (Final) - 12/26/21 Discharge Disposition: A-D/C Home Attending Physician: Phuong Peraza MD Admitting Physician: Phuong Peraza MD Referring Physician: Not on Staff, Referring MD Allergies, Adverse Reactions, Alerts No Known Allergies Medications famotidine 20 mg oral tablet 20 mg, 1, tablet, By Mouth, 2 times a day, # 180 tablet, Refills 0, Tot. Refills 0, Maintenance, 10/19/21 14:12:00 EDT, Route to Pharmacy Electronically, [facility]/pharmacy #[id number], Partial fill upon patient request if [...] 10/19/21 14:13:00 EDT, Route to Pharmacy Electronically, [facility]/pharmacy #[id number], Partial fill upon patient request if the... Start Date: 10/19/21 Status: Ordered Problem List Condition Effective Dates Status Health Status Informant Obese class I(Confirmed) Active Results Radiology Reports Exam Date Time Procedure Performing Provider Status 12/26/21 12:57 PM Chest 2 Views Frontal and Luly Vázquezline ; Auth (Verified) Lat Notes:(Chest 2 Views Frontal and Lat) Reason For Exam: Shortness of Breath, Fever;Other:RESULT: Chest 2 Views Frontal and Lat PA and lateral chest dated December 26, 2021. Comparison films are from November 26, 2021. HISTORY: Shortness of breath. FINDINGS: The cardiac silhouette is within normal limits for size. Hilar and mediastinal structures are unremarkable. No airspace infiltrate or pleural effusion is identified. Visualized osseous structures are unremarkable. IMPRESSION: No evidence of acute pulmonary disease. No significant change. Examination [id number]. Thank you for allowing me to participate in the care of this patient. WSN: [id number] Ordering Physician: Clifford Mayen Dictated By: Jude Matta MD Dictated Date/Time: 12/26/21 1:00 pm Reviewed By: Jude Matta MD Signed By: Jude Matta MD Signed Date/Time: 12/26/21 1:00 pm Transcribed By: KAYLIE Transcribed Date/Time: 12/26/21 1:00 pm Vital Signs Most recent to oldest 1 2 3 [Reference Range]: Oxygen Saturation [94-100 %] 98 % 100 % 100 % (12/26/21 2:16 PM) (12/26/21 11:02 AM) (12/26/21 10 :20 AM) Pulse Rate [55-90 bpm] 80 bpm 77 bpm 66 bpm (12/26/21 2:16 PM) (12/26/21 11:02 AM) (12/26/21 10 :20 AM) Blood Pressure [90-138/55-84 114/65 mm Hg 137/63 mm Hg 131 /68 mm Hg mm Hg] (12/26/21 2:16 PM) (12/26/21 11:02 AM) (12/26/21 10 :20 AM) Respiratory Rate [16-30 20 br/min 18 br/min 18 br/mi n br/min] (12/26/21 2:16 PM) (12/26/21 11:02 AM) (12/26/21 10 :20 AM) Temperature [96.8-100.4 DegF] 98.3 DegF 98.3 DegF 97 .0 DegF (12/26/21 2:16 PM) (12/26/21 11:02 AM) (12/26/21 10 :20 AM) Mode of Delivery (Oxygen) Room air Room air Room a ir (12/26/21 2:16 PM) (12/26/21 11:02 AM) (12/26/21 10 :20 AM) Blood pressure sites Arm, left Arm, right Arm, right (12/26/21 2:16 PM) (12/26/21 11:02 AM) (12/26/21 10 :20 AM) Temperature Route Oral Oral Oral (12/26/21 2:16 PM) (12/26/21 11:02 AM) (12/26/21 10 :20 AM)
--- OUTSIDE RECORDS SUMMARY | 2022-06-18 22:49 | XMS_ITS | Continuity of Care Document ---
:1995 Author Organization [facility] Address [address] [place] [address]- Care Team Providers Name Role Phone Not on Staff, PCP Primary Care Physician Unavailable Encounter [facility] Date(s): 09/12/21 - 09/12/[address] [address]- Encounter Diagnosis Chest pain (Final) - 09/12/21 Discharge Disposition: A-D/C Home Attending Physician: Rivas Bueno DO Admitting Physician: Rivas Bueno DO Referring Physician: Not on Staff, Referring MD Allergies, Adverse Reactions, Alerts No Known Allergies Results Radiology Reports Exam Date Time Procedure Performing Provider Status 09/12/21 9:23 AM Chest 2 Views Frontal and Lat Martine Bruce; Auth (Verified) Notes:(Chest 2 Views Frontal and Lat) Reason For Exam: Pleuritic PainRESULT: Chest 2 Views Frontal and Lat Chest 2 Views Frontal and Lat Hx of Present Illness: SOB, not sleeping well. lightheadedness x 1 week.. had PNA 1 month ago; Reason: Pleuritic Pain; Clinical Question(s): Pneumonia COMPARISON: Earlier examination on the same date. FINDINGS: LINES AND TUBES: None. LUNGS AND PLEURA: Clear lungs. Normal pulmonary vascularity. No pleural effusion. No pneumothorax. HEART, MEDIASTINUM AND NITA: Heart is normal in size. Normal upper mediastinal and hilar contour. BONES AND SOFT TISSUES: No acute abnormality. IMPRESSION: Normal chest. WSN: [id number] Ordering Physician: Jayce Murillo Dictated By: Jayce Cabello MD Dictated Date/Time: 09/12/21 9:39 am Reviewed By: Jayce Cabello MD Signed By: Jayce Cabello MD Signed Date/Time: 09/12/21 9:39 am Transcribed By: KAYLIE Transcribed Date/Time: 09/12/21 9:38 am Exam Date Time Procedure Performing Provider Status 09/12/21 8:07 AM Chest 2 Views Frontal and Lat Ivan Walker [facility] (Verified) Notes:(Chest 2 Views Frontal and Lat) Reason For Exam: Shortness of Breath RESULT: Chest 2 Views Frontal and Lat Chest 2 Views Frontal and Lat Hx of Present Illness: SOB, not sleeping well. Lightheadedness x 1 week.. had PNA 1 month ago; Reason: Shortness of Breath; Clinical Question(s): Pneumonia COMPARISON: None. FINDINGS: LINES AND TUBES: None. LUNGS AND PLEURA: Clear lungs. Normal pulmonary vascularity. No pleural effusion. No pneumothorax. HEART, MEDIASTINUM AND NITA: Heart is normal in size. Normal upper mediastinal and hilar contour. BONES AND SOFT TISSUES: No acute abnormality. IMPRESSION: No acute abnormality. WSN: [id number] Ordering Physician: Tanvir Lerma Dictated By: Ernestine Sheriff MD Dictated Date/Time: 09/12/21 8:37 am Reviewed By: Ernestine Sheriff MD Signed By: Ernestine Sheriff MD Signed Date/Time: 09/12/21 8:37 am Transcribed By: KAYLIE Transcribed Date/Time: 09/12/21 8:36 am Vital Signs Most recent to oldest 1 2 3 [Reference Range]: Oxygen Saturation [94-100 %] 99 % 98 % 99 % (09/12/21 11:20 AM) (09/12/21 10:30 AM) (09/12/21 8 :20 AM) Pulse Rate [55-90 bpm] 74 bpm 80 bpm 78 bpm (09/12/21 11:20 AM) (09/12/21 10:30 AM) (09/12/21 8 :20 AM) Blood Pressure [90-138/55-84 140/80 mm Hg 136/78 mm Hg 138 /80 mm Hg mm Hg] *H* (09/12/21 10:30 AM) (09/12/21 8:20 AM) (09/12/21 11:20 AM) Respiratory Rate [16-30 18 br/min 18 br/min 18 br/mi n br/min] (09/12/21 11:20 AM) (09/12/21 10:30 AM) (09/12/21 8 :20 AM) Temperature [96.8-100.4 DegF] 98.7 DegF 98.4 DegF (09/12/21 7:40 AM) (09/12/21 7:16 AM) Mode of Delivery (Oxygen) Room air Room air Room a ir (09/12/21 11:20 AM) (09/12/21 10:30 AM) (09/12/21 8 :20 AM) Blood pressure sites Arm, left Arm, left Arm, left (09/12/21 11:20 AM) (09/12/21 10:30 AM) (09/12/21 8 :20 AM) Temperature Route Oral Oral (09/12/21 7:40 AM) (09/12/21 7:16 AM) Dry Weight 101.5 kg (09/12/21 7:40 AM)
[2022-06-18] MEDS: Magnesium Hydrox/Alum Hydrox 30 ML ORAL.SUSP 15 ML PO (23:38)
[2022-06-18] MEDS: Lidocaine HCl Viscous 2 % 15 ML SOLUTION MUCOUS MEM (23:38)
[2022-06-18] MEDS: Ketorolac Tromethamine 15 MG/ML VIAL IM (23:39)
[2022-06-18 23:44] VITALS: BP 110/69; PULSE 80; RESP 12; O2SAT 98
[2022-06-18 23:58] LABS: MANUAL DIFF FLAG NO
[2022-06-19] LABS: Basophils Percent Auto 0.6 % (0-2); Eosinophils Absolute Auto 0.1 X10*3/uL (0.0-0.4); Eosinophils Percent Auto 1.8 % (0-4); Hematocrit 41.8 % (42.0-52.0); Hemoglobin 14.5 g/dl (14.0-18.0); Imm Gran Abs Auto 0.04 X10*3/uL (0.00-0.03); Imm Gran Pct Auto 0.6 % (0.0-0.4); Lymphocytes Absolute Auto 2.3 X10*3/uL (1.2-4.9); Lymphocytes Percent Auto 37.7 % (20-40); Mean Corpuscular HGB Conc 34.7 g/dl (31.0-36.0); Mean Corpuscular Volume 86.4 fL (80.0-98.0); Mean Platelet Volume 11.5 fL (9.4-12.4); Monocytes Absolute Auto 0.6 X10*3/uL (0.1-1.2); Monocytes Percent Auto 9.4 % (2-11); Neutrophils Absolute Auto 3.1 x10*3/uL (2.0-8.3); Neutrophils Percent Auto 49.9 % (45-73); Platelet Count 191 X10*3/uL (160-400); Red Blood Count 4.84 X10*6/uL (4.60-5.80); Red Cell Distribution Width 13.8 % (11.0-16.0); White Blood Count 6.2 X10*3/uL (4.8-10.8)
[2022-06-19 00:21] LABS: Alanine Aminotransferase 43 U/L (0-40); Albumin Level 4.3 g/dL (3.5-5.0); Alkaline Phosphatase 87 U/L (39-117); Anion Gap 12 (12-20); Aspartate Amino Transferase 24 U/L (5-37); Bilirubin Total 0.3 mg/dL (0.0-1.0); Blood Urea Nitrogen 14 mg/dL (9-16); Calcium 9.4 mg/dL (8.4-10.2); Carbon Dioxide 26 mmol/L (22-29); Chloride 105 mmol/L (96-108); Creatinine Clr Calc Pharmacy 105.6; Estimated Glomerular Filt Rate > 60; Glucose Random 106 mg/dL (60-115); Potassium 3.6 mmol/L (3.3-5.1); Sodium 139 mmol/L (135-145); Total Protein 6.8 g/dL (6.5-8.0)
[2022-06-19 00:23] LABS: COVID-19 Test Negative (Negative); IDNOW Serial# 16C4AD1C; IDNOW Serial# BCCEAD1C; Influenza A Negative (Negative); Influenza B2 Negative (Negative); Troponin-I High Sensitivity < 3.5 ng/L (<3.5-35.0)
--- NOTE | 2022-06-19 00:35 | PC.NURSE ---
Discharge instruction reviewed with pt. Pt verbalizes understanding.
== END 2022-06-19 00:36 | disposition home or self-care (01) ==
PROVIDERS: Physician Assistant Medical; Emergency Provider Emergency Medicine
DX: R07.9 Chest pain, unspecified (principal); K21.9 Gastro-esophageal reflux disease without esophagitis; Z79.899 Other long term (current) drug therapy
CPT/HCPCS: 80053; 83735; 84484; 85025; 87502; 87635; 93005; 96372; 99284; J1885

== ENCOUNTER 2022-12-09 13:44 | Outpatient (REF) | payer MEDICAID, OTHER, SELFPAY ==
[2022-12-09 17:10] LABS: TSH reflex Free T4 1.42 uIU/mL (0.32-4.0)
[2022-12-09 21:22] LABS: Influenza A PCR NEGATIVE (Negative); Influenza B PCR NEGATIVE (Negative); Resp Syncy Virus RNA Qual PCR NEGATIVE (Negative); SARS COV2 PCR INHOUSE NEGATIVE (Negative)
== END 2022-12-09 13:45 | disposition home or self-care (01) ==
LOC: HO.HHCL 13:44
PROVIDERS: Visit Provider Emergency Medicine
DX: R07.0 Pain in throat (principal); Z20.822 Contact with and (suspected) exposure to COVID-19; Z87.19 Personal history of other diseases of the digestive system
CPT/HCPCS: 0241U; 36415; 84443; 87070

== ENCOUNTER 2022-12-21 21:37 | Emergency (ER) | payer MEDICAID, OTHER, SELFPAY ==
--- NOTE | ~2022-12-21 | XR_ITS ---
EXAMINATION: XR ABDOMEN KUB CLINICAL INDICATION: Fecal impaction COMPARISON: None available. TECHNIQUE: AP view of the abdomen. FINDINGS: Nonobstructive bowel gas pattern. No dilated loops of bowel. Scattered gas and stool throughout the colon with mild stool burden of the right hemicolon. No acute osseous abnormality. XR/XR KUB IMPRESSION: Mild stool burden of the right hemicolon.
[2022-12-21 21:40] VITALS: BP 136/85; PULSE 93; RESP 18; TEMP 36; O2SAT 98; BMI 35.9
[2022-12-21 22:11] LABS: MANUAL DIFF FLAG NO
[2022-12-21 22:13] LABS: Basophils Percent Auto 0.4 % (0-2); Eosinophils Absolute Auto 0.1 X10*3/uL (0.0-0.4); Eosinophils Percent Auto 1.2 % (0-4); Imm Gran Abs Auto 0.03 X10*3/uL (0.00-0.03); Imm Gran Pct Auto 0.4 % (0.0-0.4); Lymphocytes Absolute Auto 2.1 X10*3/uL (1.2-4.9); Lymphocytes Percent Auto 30.4 % (20-40); Mean Corpuscular HGB Conc 34.1 g/dl (31.0-36.0); Mean Platelet Volume 11.5 fL (9.4-12.4); Monocytes Absolute Auto 0.5 X10*3/uL (0.1-1.2); Monocytes Percent Auto 7.9 % (2-11); Neutrophils Absolute Auto 4.1 x10*3/uL (2.0-8.3); Neutrophils Percent Auto 59.7 % (45-73); Platelet Count 220 X10*3/uL (160-400); Red Cell Distribution Width 13.2 % (11.0-16.0); White Blood Count 6.8 X10*3/uL (4.8-10.8)
[2022-12-21 22:31] LABS: Alanine Aminotransferase 50 U/L (0-40); Albumin Level 4.6 g/dL (3.5-5.0); Alkaline Phosphatase 97 U/L (39-117); Anion Gap 15 (12-20); Aspartate Amino Transferase 23 U/L (5-37); Bilirubin Total 0.3 mg/dL (0.0-1.0); Blood Urea Nitrogen 12 mg/dL (9-16); Calcium 9.5 mg/dL (8.4-10.2); Carbon Dioxide 25 mmol/L (22-29); Chloride 106 mmol/L (96-108); Estimated Glomerular Filt Rate > 60; Glucose Random 96 mg/dL (60-115); Lipase 20 U/L (8-78); Potassium 3.8 mmol/L (3.3-5.1); Sodium 142 mmol/L (135-145); Total Protein 7.7 g/dL (6.5-8.0)
--- NOTE | 2022-12-22 01:08 | ED.ABDPAIN ---
HPI - Abdominal Pain General Chief Complaint: Abdominal Pain Stated Complaint: abd pain left side/left arm pain/chest pain Time Seen by Provider: 12/22/22 00:57 Source: patient Mode of arrival: ambulatory Limitations: no limitations History of Present Illness HPI narrative: Patient alert healthy been complaining of pain in lower abdomen especially the left side for last getting worse lately no nausea no vomiting constipation also complaining of pain in the left arm Related Data Previous Rx's Medication Instructions Recorded azithromycin 250 mg tablet See Rx Instructions PO .COMPLEX #6 07/16/21 tabs omeprazole 20 mg capsule,delayed 20 mg PO DAILY 14 days #14 caps 07/16/21 release omeprazole magnesium 20 mg 20 mg PO DAILY 3 weeks #21 tabs 10/25/21 tablet,delayed release (Prilosec OTC) aluminum hydrox-magnesium carb 254 10 ml PO QID PRN dyspepsia #355 mL 11/23/21 mg-237.5 mg/5 mL oral suspension (Gaviscon Extra Strength) krhyuvafnd-drxhbksxsxswe-dukvsdpi 1 cap PO Q6H PRN headache #20 caps 01/26/22 50 mg-300 mg-40 mg capsule (Fioricet) zolpidem 5 mg tablet (Ambien) 5 mg PO BEDTIME PRN sleep #14 tabs 01/26/22 docusate sodium 100 mg capsule 200 mg PO DAILY PRN Constipation 05/11/22 (Colace) #60 caps hydrocortisone acetate 25 mg 25 mg [place] BID #24 ea 05/11/22 rectal suppository (Anusol-HC) dicyclomine 20 mg tablet 20 mg PO TID PRN abdominal pain 12/22/22 #20 tabs Allergies Allergy/AdvReac Type Severity Reaction Status Date / Time No Known Allergies Allergy Verified 12/21/22 21:40 Review of Systems Review of Systems Yes all other systems are reviewed and are negative [facility] Past Medical History Medical History Arthritis Chronic GERD Social History Social History Alcohol intake: current Alcohol intake frequency: holidays/special occasions only Patient Tobacco Use Status: Never used Tobacco Advance Directives: No Advance Directives Information Provided: No Physical Exam ED Vital Signs: Vital Signs - 24 hr 12/21/22 21:40 12/22/22 02:06 Temperature 96.8 F Pulse Rate 93 Respiratory Rate 18 17 Blood Pressure 136/85 Pulse Oximetry 98 Oxygen Delivery Method Room Air BMI result Body Mass Index 35.9 Appearance: Alert. Oriented X3. No acute distress. Eyes: PERRLA, No Nystagmus ENT: Pharynx normal. Oral Mucosa moist Neck: Normal inspection. Neck supple. CVS: Normal heart rate and rhythm. Pulses normal. Respiratory: No respiratory distress. Equal air entry bilateral, no wheezing/rales/rhonchi Abdomen: Soft , mild tenderness left lower quadrant no rebound or guarding Bowel sounds are present, no mass palpable, no CVA tenderness Skin: Skin warm and dry. Normal skin color. Normal skin turgor. Extremities: No lower extremity edema. No calf tenderness Neuro: Oriented X 3. No motor deficit Medical Decision Making Lab Data 12/21/22 22:04 12/21/22 22:04 Labs: Lab Results 12/21/22 12/21/22 12/22/22 Range/Units 22:04 22:04 00:58 WBC 6.8 (4.8-10.8) X10*3/uL RBC 5.00 (4.60-5.80) X10*6/uL Hgb 15.0 (14.0-18.0) g/dl Hct 44.0 (42.0-52.0) % MCV 88.0 (80.0-98.0) fL MCH 30.0 (27.0-33.0) pg MCHC 34.1 (31.0-36.0) g/dl RDW 13.2 (11.0-16.0) % Plt Count 220 (160-400) X10*3/uL MPV 11.5 (9.4-12.4) fL Immature Gran % (Auto) 0.4 (0.0-0.4) % Neut % (Auto) 59.7 (45-73) % Lymph % (Auto) 30.4 (20-40) % Haralson % (Auto) 7.9 (2-11) % Eos % (Auto) 1.2 (0-4) % Baso % (Auto) 0.4 (0-2) % Lymph # (Auto) 2.1 (1.2-4.9) X10*3/uL Haralson # (Auto) 0.5 (0.1-1.2) X10*3/uL Eos # (Auto) 0.1 (0.0-0.4) X10*3/uL Baso # (Auto) 0.0 (0.0-0.2) X10*3/uL Abs Immat Gran (auto) 0.03 (0.00-0.03) X10*3/uL Absolute Neuts (auto) 4.1 (2.0-8.3) x10*3/uL Absolute Nucleated RBC 0.000 (0.0-0.012) X10*3/uL Nucleated RBC % (auto) 0.0 (0.0-0.2) /100WBC Sodium 142 (135-145) mmol/L Potassium 3.8 (3.3-5.1) mmol/L Chloride 106 (96-108) mmol/L Carbon Dioxide 25 (22-29) mmol/L Anion Gap 15 (12-20) BUN 12 (9-16) mg/dL Creatinine 1.18 (0.5-1.4) mg/dL Estim Creat Clear Calc 108.0 Estimated GFR > 60 Random Glucose 96 (60-115) mg/dL Calcium 9.5 (8.4-10.2) mg/dL Total Bilirubin 0.3 (0.0-1.0) mg/dL AST 23 (5-37) U/L ALT 50 H (0-40) U/L Alkaline Phosphatase 97 (39-117) U/L Total Creatine Kinase 154 (38-174) U/L Total Protein 7.7 (6.5-8.0) g/dL Albumin 4.6 (3.5-5.0) g/dL Lipase 20 (8-78) U/L Urine Color Yellow Urine Appearance Clear Urine pH 6.0 (5.0-9.0) Ur Specific Dorothy >= 1.030 H (1.005-1.025) Urine Protein Negative (Neg-Trace) mg/dL Urine Glucose (UA) Negative (Negative) mg/dL Urine Ketones Trace (Negative) mg/dL Urine Blood Negative (Negative) Urine Nitrite Negative (Negative) Ur Leukocyte Esterase Negative (Negative) Medications Administered Discontinued Medications Generic Name Dose Route Start Last Admin Trade Name Freq PRN Reason Stop Dose Admin Dicyclomine HCl 20 mg 12/22/22 01:17 12/22/22 02:00 Dicyclomine Hcl 10 Mg Capsule PO 12/22/22 01:18 20 mg ONCE ONE Administration Discharge Plan Discharge Clinical Impression: Abdominal pain Patient Disposition: Home, Self-Care Instructions: Abdominal Pain (ED) Additional Instructions: Drink plenty of fluids Medicine for abdominal pain as prescribed Follow with PCP Prescriptions: New dicyclomine 20 mg tablet 20 mg PO TID PRN (Reason: abdominal pain) Qty: 20 0RF No Action omeprazole magnesium [Prilosec OTC] 20 mg tablet,delayed release (DR/EC) 20 mg PO DAILY 21 Days Qty: 21 0RF Gaviscon Extra Strength 254-237.5 mg/5 mL suspension 10 ml PO QID PRN (Reason: dyspepsia) Qty: 355 0RF zolpidem [Ambien] 5 mg tablet 5 mg PO BEDTIME PRN (Reason: sleep) Qty: 14 0RF bqyniesnmg-ubkkfiuukezik-jalx [Fioricet] 50-300-40 mg capsule 1 cap PO Q6H PRN (Reason: headache) Qty: 20 0RF azithromycin 250 mg tablet See Rx Instructions .ROUTE .COMPLEX Qty: 6 0RF Rx Instructions: For 250 mg dose pack: take 500 mg today (day 1), then 250 mg for 4 days (days 2-5) omeprazole 20 mg capsule,delayed release(DR/EC) 20 mg PO DAILY 14 Days Qty: 14 0RF hydrocortisone acetate [Anusol-HC] 25 mg suppository 25 mg [place] BID Qty: 24 0RF docusate sodium [Colace] 100 mg capsule 200 mg PO DAILY PRN (Reason: Constipation) Qty: 60 0RF Interventions: ED Discharge Assessment Last Done: 12/22/22 02:32 Discharge Date/Time: 12/22/22 02:38
[2022-12-22 01:10] LABS: Appearance Urine Clear; Color Urine Yellow; Glucose Urine UA Negative (Negative); Leukocyte Esterase Urine Negative (Negative); Nitrite Urine Negative (Negative); Specific Gravity - Urine >= 1.030 (1.005-1.025); Urine Blood Negative (Negative); Urine Ketones Trace mg/dL (Negative); Urine Protein Negative (Neg-Trace)
[2022-12-22] MEDS: Dicyclomine HCl 10 MG CAPSULE 20 MG PO (02:00)
[2022-12-22 02:06] VITALS: RESP 17
== END 2022-12-22 02:38 | disposition home or self-care (01) ==
PROVIDERS: Emergency Provider Internal Medicine
DX: R10.32 Left lower quadrant pain (principal); Z79.899 Other long term (current) drug therapy
CPT/HCPCS: 36415; 74018; 80053; 81003; 82550; 83690; 85025; 99283

== ENCOUNTER 2023-08-15 01:36 | Emergency (ER) | payer MEDICAID, OTHER, SELFPAY ==
[2023-08-15 01:39] VITALS: BP 148/88; PULSE 93; RESP 16; TEMP 37.1; O2SAT 98; BMI 35.5
--- NOTE | 2023-08-15 01:47 | ECG_ITS ---
Test Reason : chest pain Blood Pressure : / mmHG Vent. Rate : 090 BPM Atrial Rate : 090 BPM P-R Int : 128 ms QRS Dur : 096 ms QT Int : 314 ms P-R-T Axes : 016 048 021 degrees QTc Int : 384 ms Normal sinus rhythm Nonspecific T wave abnormality Abnormal ECG When compared with ECG of 18-JUN-2022 22:36, Nonspecific T wave abnormality now evident in Inferior leads Referred By: Generic ED Physician Electronically Signed By:FELICITAS MYERS
[2023-08-15 01:59] LABS: MANUAL DIFF FLAG NO
[2023-08-15 02:00] LABS: Basophils Absolute Auto 0.1 X10*3/uL (0.0-0.2); Basophils Percent Auto 0.7 % (0-2); Eosinophils Absolute Auto 0.1 X10*3/uL (0.0-0.4); Eosinophils Percent Auto 1.4 % (0-4); Hematocrit 46.1 % (42.0-52.0); Hemoglobin 16.1 g/dl (14.0-18.0); Imm Gran Abs Auto 0.03 X10*3/uL (0.00-0.03); Imm Gran Pct Auto 0.4 % (0.0-0.4); Lymphocytes Absolute Auto 2.6 X10*3/uL (1.2-4.9); Lymphocytes Percent Auto 35.4 % (20-40); Mean Corpuscular HGB Conc 34.9 g/dl (31.0-36.0); Mean Corpuscular Hemoglobin 30.1 pg (27.0-33.0); Mean Corpuscular Volume 86.3 fL (80.0-98.0); Mean Platelet Volume 11.7 fL (9.4-12.4); Monocytes Absolute Auto 0.5 X10*3/uL (0.1-1.2); Neutrophils Absolute Auto 4.1 x10*3/uL (2.0-8.3); Neutrophils Percent Auto 55.1 % (45-73); Platelet Count 210 X10*3/uL (160-400); Red Blood Count 5.34 X10*6/uL (4.60-5.80); Red Cell Distribution Width 13.9 % (11.0-16.0); White Blood Count 7.4 X10*3/uL (4.8-10.8)
[2023-08-15 02:14] LABS: Alanine Aminotransferase 50 U/L (0-40); Albumin Level 4.5 g/dL (3.5-5.0); Alkaline Phosphatase 94 U/L (39-117); Anion Gap 15 (12-20); Aspartate Amino Transferase 23 U/L (5-37); Bilirubin Total 0.4 mg/dL (0.0-1.0); Blood Urea Nitrogen 11 mg/dL (9-16); Calcium 9.6 mg/dL (8.4-10.2); Carbon Dioxide 23 mmol/L (22-29); Chloride 105 mmol/L (96-108); Creatinine Clr Calc Pharmacy 132.3; Estimated Glomerular Filt Rate > 60; Glucose Random 133 mg/dL (60-115); Potassium 3.6 mmol/L (3.3-5.1); Sodium 139 mmol/L (135-145); Total Protein 7.5 g/dL (6.5-8.0)
[2023-08-15 02:22] LABS: Troponin-I High Sensitivity < 2.7 ng/L (<3.5-35.0)
[2023-08-15 03:50] VITALS: BP 131/69; PULSE 90; RESP 16; O2SAT 96
--- NOTE | 2023-08-15 04:12 | ED.CHESTPAIN ---
HPI - Chest Pain General Chief Complaint: Chest Pain Stated Complaint: chest discomfort/unable to sleep Time Seen by Provider: 08/15/23 04:01 Source: patient Mode of arrival: ambulatory Limitations: no limitations History of Present Illness HPI narrative: Patient comes to the emergency room complaining of burning sensation in the esophagus, no chest pain, shortness of breath only at bedtime, patient states that he feels that his nose gets stuffy. At this time, patient denies any symptoms. Patient denies fever chills, no lung diseases. Patient states that he is known to have GERD, went to a [facility] a few months ago, had an endoscopy patient was diagnosed with Boudreaux's esophagus. Related Data Previous Rx's Medication Instructions Recorded azithromycin 250 mg tablet See Rx Instructions PO .COMPLEX #6 07/16/21 tabs omeprazole 20 mg capsule,delayed 20 mg PO DAILY 14 days #14 caps 07/16/21 release omeprazole magnesium 20 mg 20 mg PO DAILY 3 weeks #21 tabs 10/25/21 tablet,delayed release (Prilosec OTC) aluminum hydrox-magnesium carb 254 10 ml PO QID PRN dyspepsia #355 mL 11/23/21 mg-237.5 mg/5 mL oral suspension (Gaviscon Extra Strength) evpjocckcs-srvycvpxdcamz-vspntlao 1 cap PO Q6H PRN headache #20 caps 01/26/22 50 mg-300 mg-40 mg capsule (Fioricet) zolpidem 5 mg tablet (Ambien) 5 mg PO BEDTIME PRN sleep #14 tabs 01/26/22 docusate sodium 100 mg capsule 200 mg (2 x 100 mg) PO DAILY PRN 05/11/22 (Colace) Constipation #60 caps hydrocortisone acetate 25 mg 25 mg IN BID #24 ea 05/11/22 rectal suppository (Anusol-HC) dicyclomine 20 mg tablet 20 mg PO TID PRN abdominal pain 12/22/22 #20 tabs fexofenadine-pseudoephedrine ER 1 tab PO QAM PRN nasal congestion 08/15/23 180 mg-240 mg tablet,ext.release #20 tabs 24 hr (Anabel-D 24 Hour) Allergies Allergy/AdvReac Type Severity Reaction Status Date / Time No Known Allergies Allergy Verified 12/21/22 21:40 Review of Systems Review of Systems: Constitutional : No Weight loss, No Fever, No Chills, No Night Sweats, No Fatigue, No Malaise ENT/Mouth : No Hearing loss, No Ear Pain, complaining of Nasal Congestion, No Sinus Pain, No Hoarseness, No sore throat, No Rhinorrhea, No Swallowing Difficulty Eyes: No Eye Pain, No Swelling, No Redness, No Foreign Body, No Discharge, No Vision Changes Cardiovascular : No Chest Pain, No SOB, No Dyspnea on Exertion, No Orthopnea, No Edema, No Palpitations Respiratory : No Cough, No Sputum, No Wheezing, No Smoke Exposure, No Dyspnea Gastrointestinal : Complaining of reflux, No Nausea, No Vomiting, No Diarrhea, No Constipation, No abdominal Pain, No Hematochezia, No Melena Genitourinary : no irregular bleeding, No Dysuria, No Urinary Frequency, No Hematuria, No Urinary Incontinence, No Urgency, No Flank Pain, No Urinary Flow Changes, No Hesitancy Musculoskeletal : No joint pain, No Myalgias, No Joint Swelling Skin : No Skin Lesions, No rash Neuro : No Weakness, No Numbness, No Paresthesias, No Loss of Consciousness, No Dizziness, No Headache Psych : No Anxiety/Panic, No Depression, No SI/HI/AH/VH, No Social Issues, Heme/Lymph: No Bruising, No Bleeding,No Lymphadenopathy Endocrine : No Polyuria, No Polydipsia, No Temperature Intolerance PMFSH Past Medical History Medical History Arthritis Chronic GERD Social History Social History Alcohol intake: current Alcohol intake frequency: a few times a week Patient Tobacco Use Status: Never used Tobacco Smoked in Last 30 Days: No Use of substances other than those prescribed or required for medical reasons: No Advance Directives: No Advance Directives Information Provided: No Physical Exam Vital Signs: Vital Signs: Last Vital Signs Temp 98.7 F 08/15/23 01:39 Pulse 90 08/15/23 03:50 Resp 16 08/15/23 03:50 BP 131/69 08/15/23 03:50 Pulse Ox 96 08/15/23 03:50 O2 Del Method Room Air 08/15/23 03:50 BMI result Body Mass Index 35.5 Const: Other: Appearance: Alert. Oriented X3. No acute distress. Eyes: Pupils equal, round and reactive to light. ENT: Pharynx normal. Neck: Normal inspection. Neck supple. No lymph nodes noted. No crepitus CVS: Normal heart rate and rhythm. Pulses normal. Normal S1 and S2 Respiratory: No respiratory distress. Breath sounds normal. No Wheezing. No rales Abdomen: Soft and nontender. No rigidity. No distention. Skin: Skin warm and dry. Normal skin color. Normal skin turgor. Extremities: No lower extremity edema. No Lacerations. No Rash Neuro: Oriented X 3. No motor deficit. No sensory deficit. Moving all extremities. No slurred speech. CN 2 through 12 grossly intact Psych: calm, cooperative, normal affect Medical Decision Making Medical Decision Making [facility] Narrative: -the interpretation of EKG: Normal sinus rhythm, heart rate 90, no ST segment depression or elevation, no T-wave inversion, QTC 384 = my interpretation of labs: Normal hematology and chemistry, troponins negative. -from what patient describes, seems that patient has postnasal drip on top of Boudreaux's esophagus. Differential Diagnosis Differential Diagnoses: The differential diagnosis associated with the presentation includes (As above) Lab Data [facility] Lab Attestation statement: I reviewed the patient's lab results. 08/15/23 01:51 08/15/23 01:51 Labs: Lab Results 08/15/23 Range/Units 01:51 WBC 7.4 (4.8-10.8) X10*3/uL RBC 5.34 (4.60-5.80) X10*6/uL Hgb 16.1 (14.0-18.0) g/dl Hct 46.1 (42.0-52.0) % MCV 86.3 (80.0-98.0) fL MCH 30.1 (27.0-33.0) pg MCHC 34.9 (31.0-36.0) g/dl RDW 13.9 (11.0-16.0) % Plt Count 210 (160-400) X10*3/uL MPV 11.7 (9.4-12.4) fL Immature Gran % (Auto) 0.4 (0.0-0.4) % Neut % (Auto) 55.1 (45-73) % Lymph % (Auto) 35.4 (20-40) % [place] % (Auto) 7.0 (2-11) % Eos % (Auto) 1.4 (0-4) % Baso % (Auto) 0.7 (0-2) % Lymph # (Auto) 2.6 (1.2-4.9) X10*3/uL [place] # (Auto) 0.5 (0.1-1.2) X10*3/uL Eos # (Auto) 0.1 (0.0-0.4) X10*3/uL Baso # (Auto) 0.1 (0.0-0.2) X10*3/uL Abs Immat Gran (auto) 0.03 (0.00-0.03) X10*3/uL Absolute Neuts (auto) 4.1 (2.0-8.3) x10*3/uL Absolute Nucleated RBC 0.000 (0.0-0.012) X10*3/uL Nucleated RBC % (auto) 0.0 (0.0-0.2) /100WBC Sodium 139 (135-145) mmol/L Potassium 3.6 (3.3-5.1) mmol/L Chloride 105 (96-108) mmol/L Carbon Dioxide 23 (22-29) mmol/L Anion Gap 15 (12-20) BUN 11 (9-16) mg/dL Creatinine 0.95 (0.5-1.4) mg/dL Estim Creat Clear Calc 132.3 Estimated GFR > 60 Random Glucose 133 H (60-115) mg/dL Calcium 9.6 (8.4-10.2) mg/dL Total Bilirubin 0.4 (0.0-1.0) mg/dL AST 23 (5-37) U/L ALT 50 H (0-40) U/L Alkaline Phosphatase 94 (39-117) U/L Troponin I High Sens < 2.7 (<3.5-35.0) ng/L Total Protein 7.5 (6.5-8.0) g/dL Albumin 4.5 (3.5-5.0) g/dL Independent Interpretation I performed an independent interpretation of an: EKG Scores Heart Score History: -0- slightly suspicious ECG: -0- normal Age: -0- < or = 45 Risk factory: -0- no risk factors known Troponin: -0- < or = normal limit Score: 0 Risk: 1.7% Discharge Plan Discharge Clinical Impression: Post-nasal drip, Atypical chest pain Patient Disposition: Home, Self-Care Instructions: Chest Pain (ED), Allergic Rhinitis (ED) Additional Instructions: Please follow-up with your primary care physician tomorrow. If you have any worsening or new symptoms, please return to the emergency room or call 911 Prescriptions: New fexofenadine-pseudoephedrine [Anabel-D 24 Hour] 180-240 mg tablet extended release 24 hr 1 tab PO QAM PRN (Reason: nasal congestion) Qty: 20 0RF No Action omeprazole magnesium [Prilosec OTC] 20 mg tablet,delayed release (DR/EC) 20 mg PO DAILY 21 Days Qty: 21 0RF Gaviscon Extra Strength 254-237.5 mg/5 mL suspension 10 ml PO QID PRN (Reason: dyspepsia) Qty: 355 0RF zolpidem [Ambien] 5 mg tablet 5 mg PO BEDTIME PRN (Reason: sleep) Qty: 14 0RF ydrxgdfxto-qkmlfrwgzdaoo-qctq [Fioricet] 50-300-40 mg capsule 1 cap PO Q6H PRN (Reason: headache) Qty: 20 0RF azithromycin 250 mg tablet See Rx Instructions .ROUTE .COMPLEX Qty: 6 0RF Rx Instructions: For 250 mg dose pack: take 500 mg today (day 1), then 250 mg for 4 days (days 2-5) omeprazole 20 mg capsule,delayed release(DR/EC) 20 mg PO DAILY 14 Days Qty: 14 0RF hydrocortisone acetate [Anusol-HC] 25 mg suppository 25 mg IN BID Qty: 24 0RF docusate sodium [Colace] 100 mg capsule 200 mg PO DAILY PRN (Reason: Constipation) Qty: 60 0RF dicyclomine 20 mg tablet 20 mg PO TID PRN (Reason: abdominal pain) Qty: 20 0RF
[2023-08-15 04:47] VITALS: BP 123/76; PULSE 88; RESP 16; TEMP 36.8; O2SAT 97
== END 2023-08-15 04:49 | disposition home or self-care (01) ==
PROVIDERS: Emergency Provider Emergency Medicine
DX: R07.89 Other chest pain (principal); R09.82 Postnasal drip
CPT/HCPCS: 36415; 80053; 84484; 85025; 93005; 99283; 99284

== ENCOUNTER → 2023-08-15 01:47 | Outpatient (BNV) | payer MEDICAID, SELFPAY | PROVIDERS: Emergency Provider Emergency Medicine; Visit Provider Internal Medicine | DX: R07.9 Chest pain, unspecified (principal) | CPT/HCPCS: 93010 ==

== ENCOUNTER 2024-05-07 07:02 | Emergency (ER) | payer MEDICAID, SELFPAY ==
[2024-05-07 07:04] VITALS: BP 133/86; PULSE 83; RESP 20; TEMP 36.9; O2SAT 99; BMI 37.2
[2024-05-07 07:18] LABS: Basophils Absolute Auto 0.1 X10*3/uL (0.0-0.2); Basophils Percent Auto 0.7 % (0-2); Eosinophils Absolute Auto 0.1 X10*3/uL (0.0-0.4); Eosinophils Percent Auto 1.8 % (0-4); Hematocrit 42.6 % (42.0-52.0); Hemoglobin 14.6 g/dl (14.0-18.0); Imm Gran Pct Auto 1.4 % (0.0-0.4); Lymphocytes Absolute Auto 2.9 X10*3/uL (1.2-4.9); Lymphocytes Percent Auto 41.2 % (20-40); MANUAL DIFF FLAG NO; Mean Corpuscular HGB Conc 34.3 g/dl (31.0-36.0); Mean Corpuscular Hemoglobin 30.1 pg (27.0-33.0); Mean Corpuscular Volume 87.8 fL (80.0-98.0); Mean Platelet Volume 11.5 fL (9.4-12.4); Monocytes Absolute Auto 0.7 X10*3/uL (0.1-1.2); Monocytes Percent Auto 9.5 % (2-11); Neutrophils Absolute Auto 3.2 x10*3/uL (2.0-8.3); Neutrophils Percent Auto 45.4 % (45-73); Platelet Count 204 X10*3/uL (160-400); Red Blood Count 4.85 X10*6/uL (4.60-5.80); White Blood Count 7.1 X10*3/uL (4.8-10.8)
--- NOTE | 2024-05-07 07:20 | ED.GENADULT ---
HPI - General Adult General Chief complaint: Headache Stated complaint: Headache Time Seen by Provider: 05/07/24 07:19 Source: patient Mode of arrival: ambulatory Limitations: no limitations History of Present Illness ED Provider: Carline Benavidez PA-C HPI narrative: Patient is a 29 year old assigned male at with no reported medical history presenting to the emergency department today with left ear pain, headache, and jaw pain. Patient states that over the last 2 weeks he has had a headache, bilateral (left more than right) ear pain, and jaw pain. Patient states that he was given ear drops at that time but it has not gotten better. Patient denies any dizziness, lightheadedness, abdominal pain, nausea, vomiting, fever, chills, blurry vision, double vision, loss of vision, chest pain, difficulty breathing, shortness of breath, back pain, night sweats, pain with urination, increased urinary frequency, increased urinary urgency, blood in his urine or stool, syncope or a near syncopal episode, recent trauma or falls, bowel incontinence, bladder incontinence, or any other complaints at this time. Onset (ago): week(s) (2) Relieving factors: none Exacerbating factors: none Associated symptoms: denies other symptoms Treatments prior to arrival: other (ear drops) Related Data Previous Rx's ?Medication ?Instructions ?Recorded azithromycin 250 mg tablet See Rx Instructions PO .COMPLEX #6 07/16/21 tabs omeprazole 20 mg capsule,delayed 20 mg PO DAILY 14 days #14 caps 07/16/21 release omeprazole magnesium 20 mg 20 mg PO DAILY 3 weeks #21 tabs 10/25/21 tablet,delayed release (Prilosec OTC) aluminum hydrox-magnesium carb 254 10 ml PO QID PRN dyspepsia #355 mL 11/23/21 mg-237.5 mg/5 mL oral suspension (Gaviscon Extra Strength) vroofhrzyc-vkkpcgklnozzf-hgplviwv 1 cap PO Q6H PRN headache #20 caps 01/26/22 50 mg-300 mg-40 mg capsule (Fioricet) zolpidem 5 mg tablet (Ambien) 5 mg PO BEDTIME PRN sleep #14 tabs 01/26/22 docusate sodium 100 mg capsule 200 mg (2 x 100 mg) PO DAILY PRN 05/11/22 (Colace) Constipation #60 caps hydrocortisone acetate 25 mg 25 mg TN BID #24 ea 05/11/22 rectal suppository (Anusol-HC) dicyclomine 20 mg tablet 20 mg PO TID PRN abdominal pain 12/22/22 #20 tabs fexofenadine-pseudoephedrine ER 1 tab PO QAM PRN nasal congestion 08/15/23 180 mg-240 mg tablet,ext.release #20 tabs 24 hr (Anabel-D 24 Hour) doxycycline hyclate 100 mg tablet 100 mg PO BID 7 days #14 tabs 05/07/24 ofloxacin 0.3 % ear drops 10 drp otic (ears) DAILY 7 days 05/07/24 #10 mL Allergies Allergy/AdvReac Type Severity Reaction Status Date / Time No Known Allergies Allergy Verified 05/07/24 07:08 Review of Systems Constitutional: Constitutional: Reports no additional constitutional complaints, Denies chills, Denies fever(s), Reports headache(s) and Denies night sweats Eyes: Eyes: Reports no additional eye complaints, Denies blurry vision, Denies change in vision, Denies diplopia, Denies eye discharge, Denies loss of vision and Denies eye pain ENT: Denies dizziness and Reports headache(s) Comments: bilateral ear pain (left more than right) Cardiovascular: Cardiovascular: Reports no additional cardiovascular complaints, Denies chest pain, Denies lightheadedness, Denies Loss of Consciousness and Denies dyspnea Respiratory: Respiratory: Reports no additional respiratory complaints and Denies dyspnea Gastrointestinal: Gastrointestinal: Reports no additional gastrointestinal complaints, Denies abdominal pain, Denies melena, Denies hematochezia, Denies change in bowel habits and Denies change in stool character Genitourinary: Genitourinary: Reports no additional male genitourinary complaints, Denies hematuria, Denies oliguria, Denies difficulty urinating, Denies dysuria, Denies urinary frequency, Denies urinary hesitancy, Denies urinary incontinence and Denies urinary urgency Musculoskeletal: Musculoskeletal: Reports no additional musculoskeletal complaints, Denies numbness and Denies tingling Neurologic: Denies dizziness, Reports headache(s), Denies loss of vision, Denies numbness and Denies tingling Psychiatric: Psychiatric: Reports no additional psychiatric complaints Endocrine: Endocrine: Reports no additional endocrine complaints Hematologic/Lymphatic: Hematologic/Lymphatic: Reports no additional hematologic/lymphatic complaints Allergic/Immunologic: Allergic/Immunologic: Reports no additional allergic/immunologic complaints [facility] Past Medical History Attestation statement: The following information was validated with the patient. Source: old records reviewed and nursing notes reviewed Medical History Arthritis Chronic GERD Social History Social History Alcohol intake: current Alcohol intake frequency: a few times a week Patient Tobacco Use Status: Never used Tobacco Smoked in Last 30 Days: No Use of substances other than those prescribed or required for medical reasons: No Advance Directives: No Advance Directives Information Provided: Yes Do you have a plan to hurt others: No Plan Physical Exam ED Vital Signs: Vital Signs - 24 hr 05/07/24 07:04 05/07/24 07:30 05/07/24 08:06 Temperature 98.4 F 98.9 F 98.9 F Pulse Rate 83 78 78 Respiratory Rate 20 18 18 Blood Pressure 133/86 145/96 H 145/96 H Pulse Oximetry 99 96 96 Oxygen Delivery Method Room Air Room Air Room Air BMI result Body Mass Index 37.2 Const General: cooperative, no acute distress, alert and awake Nutritional Appearance: well nourished Orientation/consciousness: patient oriented x3 Limitations: no limitations HENMT Head: Yes normal to inspection and Yes atraumatic Ears: hearing grossly normal bilaterally, external ears normal, Abnormal EAC present cerumen impaction on the left and unable to visualize TM on the left General nose exam: Normal external nose present, no nasal discharge noted and no epistaxis Face and sinus: Yes normal facial exam, No abrasion and No laceration Mouth: Normal oral and palatal mucosa present, no drooling and no muffled voice Eyes General: appearance normal, both eyes and all related structures Periorbital: periorbital findings normal Eyelids: Yes eyelids normal Conjunctivae: conjunctivae normal Pupils: Equal, round and reactive pupils present EOM: EOMs intact bilaterally Neck Neck: Yes normal visual inspection, Yes full ROM and Yes no lymphadenopathy Chest Chest palpation & inspection: normal inspection of the chest Resp Effort & Inspection: normal respiratory effort and able to speak in complete sentences GI Inspection: Yes normal to inspection Neuro General: patient oriented x3 and moves all extremities Cranial nerves: Yes Equal, round and reactive pupils present Cognition (Neuro): normal cognition Extrem General: Yes normal to inspection, Yes full ROM and Yes capillary refill normal Psych Appearance: grossly normal Mental Status: mental status grossly normal Affect: normal affect Attitude: cooperative Thought process: Normal thought process present Thought content: Normal thought content present Insight: Good insight present (Psych) Medical Decision Making Medical Decision Making MDM Narrative: Patient is a 29 year old assigned male at with no reported medical history presenting to the emergency department today with a headache and left ear pain. Patient's physical exam was as noted in the physical exam portion of this note. Patient's left ear showed cerumen adhered to the left TM. Patient's blood work was unremarkable. Patient's clinical presentation is most consistent with sinusitis and given I cannot appropriately visualize the left TM and cannot get the cerumen unattached from the TM to remove it - will cover for left OM. I explained my physical exam findings as well as all test results to the patient. I answered all questions asked by the patient. I stressed the importance of the patient taking his medication as directed (either prescribed or as the over the counter packaging recommends). I stressed the importance of the patient following up with his primary care provider and an ENT specialist. I stressed the importance of the patient returning to the emergency department immediately if his symptoms were to worsen or if he were to develop any dizziness, shortness of breath, difficulty breathing, chest pain, blurry vision, loss of vision, nausea, vomiting, abdominal pain, fever, chills, back pain, or any other complaints. Patient verbalized agreement and understanding with this treatment plan and discharge. Differential Diagnosis Differential Diagnoses: The differential diagnosis associated with the presentation includes Sinusitis Cerumen impaction Otitis media Admission/Observation Consideration of admission/observation: Escalation of care including admission/observation considered Patient would have been admitted to the hospital had his work up had any findings where hospital admission was appropriate and his clinical presentation warranted hospital admission. Lab Data [facility] Lab Attestation statement: I reviewed the patient's lab results. My interpretation of these results are in the MDM Rationale portion of this note. 05/07/24 07:13 05/07/24 07:13 Labs: Lab Results 05/07/24 05/07/24 Range/Units 07:13 07:25 WBC 7.1 (4.8-10.8) X10*3/uL RBC 4.85 (4.60-5.80) X10*6/uL Hgb 14.6 (14.0-18.0) g/dl Hct 42.6 (42.0-52.0) % MCV 87.8 (80.0-98.0) fL MCH 30.1 (27.0-33.0) pg MCHC 34.3 (31.0-36.0) g/dl RDW 14.0 (11.0-16.0) % Plt Count 204 (160-400) X10*3/uL MPV 11.5 (9.4-12.4) fL Immature Gran % (Auto) 1.4 H (0.0-0.4) % Neut % (Auto) 45.4 (45-73) % Lymph % (Auto) 41.2 H (20-40) % [place] % (Auto) 9.5 (2-11) % Eos % (Auto) 1.8 (0-4) % Baso % (Auto) 0.7 (0-2) % Lymph # (Auto) 2.9 (1.2-4.9) X10*3/uL [place] # (Auto) 0.7 (0.1-1.2) X10*3/uL Eos # (Auto) 0.1 (0.0-0.4) X10*3/uL Baso # (Auto) 0.1 (0.0-0.2) X10*3/uL Abs Immat Gran (auto) 0.10 H (0.00-0.03) X10*3/uL Absolute Neuts (auto) 3.2 (2.0-8.3) x10*3/uL Absolute Nucleated RBC 0.000 (0.0-0.012) X10*3/uL Nucleated RBC % (auto) 0.0 (0.0-0.2) /100WBC Sodium 136 (135-145) mmol/L Potassium 3.8 (3.3-5.1) mmol/L Chloride 103 (96-108) mmol/L Carbon Dioxide 24 (22-29) mmol/L Anion Gap 13 (12-20) BUN 13 (9-16) mg/dL Creatinine 0.84 (0.5-1.4) mg/dL Estim Creat Clear Calc 151.8 Estimated GFR > 60 Random Glucose 101 (60-115) mg/dL Calcium 9.3 (8.4-10.2) mg/dL Total Bilirubin 0.3 (0.0-1.0) mg/dL Direct Bilirubin 0.1 (0.0-0.5) mg/dL AST 41 H (5-37) U/L ALT 98 H (0-40) U/L Alkaline Phosphatase 87 (39-117) U/L Total Protein 7.2 (6.5-8.0) g/dL Albumin 4.2 (3.5-5.0) g/dL Lipase 21 (8-78) U/L Influenza Type A (PCR) NEGATIVE (Negative) Influenza Type B (PCR) NEGATIVE (Negative) RSV RNA Qual (PCR) NEGATIVE (Negative) SARS-CoV-2 RNA (RT-PCR) NEGATIVE (Negative) S. pyogenes GrpA [place] Negative (Negative) Prescription Management I considered prescription management with: Antibiotic (patient prescribed an antibiotic for sinusitis and possible left OM) Discharge Plan Discharge Clinical Impression: Sinusitis, Cerumen impaction Otitis media Qualifiers: Otitis media type: unspecified Laterality: left Qualified Code(s): H66.92 - Otitis media, unspecified, left ear Patient Disposition: Home, Self-Care Instructions: Sinusitis (ED), Ear Infection (ED) Additional Instructions: You have a large, bloody appearing, collection of ear wax against your ear drum in the left ear. Given I can't see around this and can't remove it due to it's adherence on your drum, I am going to cover you for both a sinus infection and an ear infection. Follow up with your primary care provider and an ENT specialist. Return to the emergency department immediately if your symptoms worsen or if you develop any dizziness, shortness of breath, difficulty breathing, chest pain, blurry vision, loss of vision, nausea, vomiting, abdominal pain, fever, chills, back pain, or any other complaints. Prescriptions: New doxycycline hyclate 100 mg tablet 100 mg PO BID 7 Days Qty: 14 0RF ofloxacin 0.3 % drops 10 drp otic (ears) DAILY 7 Days Qty: 10 0RF No Action omeprazole magnesium [Prilosec OTC] 20 mg tablet,delayed release (DR/EC) 20 mg PO DAILY 21 Days Qty: 21 0RF Gaviscon Extra Strength 254-237.5 mg/5 mL suspension 10 ml PO QID PRN (Reason: dyspepsia) Qty: 355 0RF zolpidem [Ambien] 5 mg tablet 5 mg PO BEDTIME PRN (Reason: sleep) Qty: 14 0RF oiomxnemuh-numrprpllljks-myyr [Fioricet] 50-300-40 mg capsule 1 cap PO Q6H PRN (Reason: headache) Qty: 20 0RF azithromycin 250 mg tablet See Rx Instructions .ROUTE .COMPLEX Qty: 6 0RF Rx Instructions: For 250 mg dose pack: take 500 mg today (day 1), then 250 mg for 4 days (days 2-5) omeprazole 20 mg capsule,delayed release(DR/EC) 20 mg PO DAILY 14 Days Qty: 14 0RF hydrocortisone acetate [Anusol-HC] 25 mg suppository 25 mg TN BID Qty: 24 0RF docusate sodium [Colace] 100 mg capsule 200 mg PO DAILY PRN (Reason: Constipation) Qty: 60 0RF dicyclomine 20 mg tablet 20 mg PO TID PRN (Reason: abdominal pain) Qty: 20 0RF fexofenadine-pseudoephedrine [Anabel-D 24 Hour] 180-240 mg tablet extended release 24 hr 1 tab PO QAM PRN (Reason: nasal congestion) Qty: 20 0RF Referrals: [facility] [Provider Group] (Call to establish and follow up with an ENT specialist. ) [facility] [place] [facility] [place] (Call to establish and follow up with a primary care provider. If you already have a primary care provider, please follow up with them.) [facility] [place] [facility] Group] (Call to establish and follow up with a primary care provider. If you already have a primary care provider, please follow up with them.) [facility] [place] [facility]] (Call to establish and follow up with a primary care provider. If you already have a primary care provider, please follow up with them.) [facility] [Physician] - (Call to establish and follow up with an ENT specialist. ) Interventions: ED Discharge Assessment Last Done: 05/07/24 08:06 Discharge Date/Time: 05/07/24 08:06 Print Language: Upper Sorbian
[2024-05-07 07:30] VITALS: BP 145/96; PULSE 78; RESP 18; TEMP 37.2; O2SAT 96
[2024-05-07 07:42] LABS: Alanine Aminotransferase 98 U/L (0-40); Albumin Level 4.2 g/dL (3.5-5.0); Alkaline Phosphatase 87 U/L (39-117); Anion Gap 13 (12-20); Aspartate Amino Transferase 41 U/L (5-37); Bilirubin Direct 0.1 mg/dL (0.0-0.5); Bilirubin Total 0.3 mg/dL (0.0-1.0); Blood Urea Nitrogen 13 mg/dL (9-16); Calcium 9.3 mg/dL (8.4-10.2); Carbon Dioxide 24 mmol/L (22-29); Chloride 103 mmol/L (96-108); Creatinine Clr Calc Pharmacy 151.8; Estimated Glomerular Filt Rate > 60; Glucose Random 101 mg/dL (60-115); Lipase 21 U/L (8-78); Potassium 3.8 mmol/L (3.3-5.1); Sodium 136 mmol/L (135-145); Total Protein 7.2 g/dL (6.5-8.0)
[2024-05-07 07:46] LABS: IDNOW Serial# 9DD0AD1C; Strep A Nucleic Acid Negative (Negative)
[2024-05-07 08:06] VITALS: BP 145/96; PULSE 78; RESP 18; TEMP 37.2; O2SAT 96
[2024-05-07 08:29] LABS: Influenza A PCR NEGATIVE (Negative); Influenza B PCR NEGATIVE (Negative); Resp Syncy Virus RNA Qual PCR NEGATIVE (Negative); SARS COV2 PCR INHOUSE NEGATIVE (Negative)
== END 2024-05-07 08:06 | disposition home or self-care (01) ==
PROVIDERS: Physician Assistant Medical; Emergency Provider Emergency Medicine
DX: J32.9 Chronic sinusitis, unspecified (principal); H66.92 Otitis media, unspecified, left ear; H61.23 Impacted cerumen, bilateral; R51.9 Headache, unspecified; H92.02 Otalgia, left ear; R68.84 Jaw pain; Z03.818 Encounter for observation for suspected exposure to other biological agents ruled out; Z79.899 Other long term (current) drug therapy
CPT/HCPCS: 0241U; 36415; 80048; 80076; 83690; 85025; 87651; 99283; 99284

== ENCOUNTER 2025-02-04 21:43 | Emergency (ER) | payer MEDICAID, OTHER, SELFPAY ==
--- NOTE | 2025-02-04 21:45 | ECG_ITS ---
Test Reason : CHEST PAIN Blood Pressure : */* mmHG Vent. Rate : 94 BPM Atrial Rate : 94 BPM P-R Int : 142 ms QRS Dur : 98 ms QT Int : 324 ms P-R-T Axes : 40 50 47 degrees QTcB Int : 405 ms Normal sinus rhythm Normal ECG When compared with ECG of 15-Aug-2023 02:00, No significant change was found Referred By: Rah Medrano Electronically Signed By: JAMES MCQUEEN MD
--- NOTE | 2025-02-04 22:19 | ED_ITS ---
HPI - General Adult General Chief complaint: Chest Pain Stated complaint: CP Time Seen by Provider: 02/05/25 02:11 Source: patient Mode of arrival: ambulatory Limitations: no limitations History of Present Illness ED Provider: Dr. Cecy Gordon HPI narrative: 29-year-old male with history of GERD presenting with substernal chest pain radiating to his upper abdomen ongoing for the last several days and worsening today. Describes a burning in his chest that is worse with spicy food. Admits that it feels similar to episodes of GERD but has not taken anything for pain in a long time. Admits he used to be on a PPI but stopped taking this medication years ago. No associated fever, shortness of breath, cough or cold-type symptoms, nausea, vomiting, diarrhea, hematochezia or melena, urinary complaints, testicular pain or swelling, lower extremity edema or pain, family history of early onset heart disease or sudden cardiac . Related Data Previous Rx's ?Medication ?Instructions ?Recorded azithromycin 250 mg tablet See Rx Instructions PO .COM PLEX #6 07/16/21 tabs omeprazole 20 mg capsule,delayed 20 mg PO DAILY 14 day s #14 caps 07/16/21 release omeprazole magnesium 20 mg 20 mg PO DAILY 3 weeks #21 tabs 10/25/21 tablet,delayed release (Prilosec OTC) aluminum hydrox-magnesium carb 254 10 ml PO QID PRN dy spepsia #355 mL 11/23/21 mg-237.5 mg/5 mL oral suspension (Gaviscon Extra Strength) bvtplurxvd-xrwddpzskudzj-cbsfzvst 1 cap PO Q6H PRN hea dache #20 caps 01/26/22 50 mg-300 mg-40 mg capsule (Fioricet) zolpidem 5 mg tablet (Ambien) 5 mg PO BEDTIME PRN slee p #14 tabs 01/26/22 docusate sodium 100 mg capsule 200 mg (2 x 100 mg) PO DAILY PRN 05/11/22 (Colace) Constipation #60 caps hydrocortisone acetate 25 mg 25 mg VA BID #24 ea 05/11 rectal suppository (Anusol-HC) dicyclomine 20 mg tablet 20 mg PO TID PRN abdominal pain 12/22/22 #20 tabs fexofenadine-pseudoephedrine ER 1 tab PO QAM PRN nasal congestion 08/15/23 180 mg-240 mg tablet,ext.release #20 tabs 24 hr (Anabel-D 24 Hour) doxycycline hyclate 100 mg tablet 100 mg PO BID 7 days #14 tabs 05/07/24 ofloxacin 0.3 % ear drops 10 drp otic (ears) DAILY 7 d ays 05/07/24 #10 mL Allergies Allergy/AdvReac Type Severity Reaction Status Date / Time No Known Allergies Allergy Verified 02/04/25 22:40 Review of Systems 2 Review of Systems: As per HPI, full review of systems performed and negative but for the above mentioned pertinent positives and negatives. FOR[facility]LY [facility] Past Medical History Medical History Arthritis Chronic GERD Social History Social History Alcohol intake: current Alcohol intake frequency: a few times a week Patient Tobacco Use Status: Never used Tobacco Advance Directives: No Advance Directives Information Provided: Yes Do you have a plan to hurt others: No Plan Physical Exam ED Exam Exam: GENERAL: Well-Appearing, conversant, no acute distress. SKIN: Normal skin color for ethnicity, warm, dry, no rashes noted. HEENT: Normocephalic, atraumatic, no stridor, posterior oropharynx nonerythematous, dentition intact, EOMI. NECK: Soft, supple, full ROM, midline structures nontender, no step-offs, no deformities, no lymphadenopathy. CHEST: Heart regular rate and rhythm, no murmurs, symmetric chest rise and fall. PULMONARY: Clear to auscultation bilaterally, no labored breathing, no wheezes/rhales/rhonchi. ABDOMINAL: Soft, nondistended, nontender, positive bowel sounds in all quadrants. : Deferred. MUSCULOSKELETAL: Normal tone, full range of motion, no deformities, no peripheral edema. NEURO: Alert and oriented x3, CN II through XII intact, equal strength and sensation bilateral upper and lower extremities, no focal neurologic deficits. PSYCHIATRIC: Normal affect, fluid speech, good eye contact and appropriate demeanor. Vital Signs: Vital Signs - 24 hr 02/04/25 22:38 Temperature 97.0 F Pulse Rate 86 Respiratory Rate 20 Blood Pressure 136/76 Pulse Oximetry 99 Oxygen Delivery Method Room Air BMI result Body Mass Index 34.5 Course Course Course Narrative: RME, this is a rapid medical exam performed by Sy Medrano please refer to primary provider for complete H&P- 29-year-old male presents for evaluation of chest pain. Pain is midsternal. Plan for labs, EKG Medications Administered Discontinued Medications Generic Name Dose Route Start Last Admin Trade Name Ina PRN Reason Stop Dose Admin Acetaminophen 975 mg 02/05/25 03:02 02/05/25 03:19 Acetaminophen 325 Mg Tablet PO 02/05/25 03:03 975 mg ONCE ONE Administration Al Hydroxide/Mg Hydroxide 30 ml 02/05/25 03:02 02/05/25 03:19 Magnesium Hydrox/Alum Hydrox 30 Ml Oral.Susp PO 02/05/25 03:03 30 ml ONCE ONE Administration Medical Decision Making Medical Decision Making [facility] Narrative: Patient presents today with a chief complaint of chest pain. Differential diagnosis includes, but is not limited to, acute coronary syndrome, musculoskeletal pain, pneumothorax, GERD, pleurisy, pulmonary embolism, dissection, among others. I will order EKG, chest x-ray, the laboratory workup including cardiac enzymes to further evaluate for etiology. Blood work reassuring. EKG is nonischemic. Clinical picture favors gastritis or GERD. Using shared decision making, plan for discharge home to follow-up with primary care and/or specialist.? Patient understands and agrees with plan for discharge.? Discharged home in stable condition. Differential Diagnosis Differential Diagnoses: The differential diagnosis associated with the presentation includes Admission/Observation Consideration of admission/observation: Escalation of care including admission/observation considered Lab Data [facility] Lab Attestation statement: I reviewed the patient's lab results. 02/04/25 22:43 02/04/25 22:43 Labs: Lab Results 02/04/25 Range/Units 22:43 WBC 8.2 (4.8-10.8) X10*3/uL RBC 4.72 (4.60-5.80) X10*6/uL Hgb 14.0 (14.0-18.0) g/dl Hct 41.3 L (42.0-52.0) % MCV 87.5 (80.0-98.0) fL MCH 29.7 (27.0-33.0) pg MCHC 33.9 (31.0-36.0) g/dl RDW 13.9 (11.0-16.0) % Plt Count 214 (160-400) X10*3/uL MPV 11.4 (9.4-12.4) fL Immature Gran % (Auto) 0.4 (0.0-0.4) % Neut % (Auto) 56.5 (45-73) % Lymph % (Auto) 33.3 (20-40) % [place] % (Auto) 7.8 (2-11) % Eos % (Auto) 1.5 (0-4) % Baso % (Auto) 0.5 (0-2) % Lymph # (Auto) 2.7 (1.2-4.9) X10*3/uL [place] # (Auto) 0.6 (0.1-1.2) X10*3/uL Eos # (Auto) 0.1 (0.0-0.4) X10*3/uL Baso # (Auto) 0.0 (0.0-0.2) X10*3/uL Abs Immat Gran (auto) 0.03 (0.00-0.03) X10*3/uL Absolute Neuts (auto) 4.7 (2.0-8.3) x10*3/uL Absolute Nucleated RBC 0.000 (0.0-0.012) X10*3/uL Nucleated RBC % (auto) 0.0 (0.0-0.2) /100WBC Sodium 140 (135-145) mmol/L Potassium 3.7 (3.3-5.1) mmol/L Chloride 106 (96-108) mmol/L Carbon Dioxide 24 (22-29) mmol/L Anion Gap 14 (12-20) BUN 16 (9-16) mg/dL Creatinine 0.86 (0.5-1.4) mg/dL Estim Creat Clear Calc 142.6 Estimated GFR > 60 Random Glucose 86 (60-115) mg/dL Calcium 9.3 (8.4-10.2) mg/dL Total Bilirubin 0.3 (0.0-1.0) mg/dL AST 25 (5-37) U/L ALT 24 (0-40) U/L Alkaline Phosphatase 86 (39-117) U/L Troponin I High Sens < 2.7 (<3.5-35.0) ng/L Total Protein 7.3 (6.5-8.0) g/dL Albumin 4.8 (3.5-5.0) g/dL Lipase 20 (8-78) U/L Independent Interpretation I performed an independent interpretation of an: EKG Prescription Management I considered prescription management with: Other (Antacids) Chronic Conditions Patient?s care impacted by: Other (GERD) Discharge Plan Discharge Clinical Impression: Atypical chest pain Patient Disposition: Home, Self-Care Instructions: Noncardiac Chest Pain (ED) Additional Instructions: Continue taking your antacids as prescribed. Try to avoid spicy foods if possible. You may also use medications like Maalox which can help with the acid production and pains in your chest. Alternatively, try Tylenol as this can also help with the chest pain. Return to the emergency department with any new or worsening symptoms including: Worsening chest pain despite medication, fevers greater than 100 degrees, sputum production, passing out, any new symptom that concerns you. Prescriptions: No Action omeprazole magnesium [Prilosec OTC] 20 mg tablet,delayed release (DR/EC) 20 mg PO DAILY 21 Days Qty: 21 0RF Gaviscon Extra Strength 254-237.5 mg/5 mL suspension 10 ml PO QID PRN (Reason: dyspepsia) Qty: 355 0RF zolpidem [Ambien] 5 mg tablet 5 mg PO BEDTIME PRN (Reason: sleep) Qty: 14 0RF hijzfurvwz-cmnjmwxttjfxh-wdos [Fioricet] 50-300-40 mg capsule 1 cap PO Q6H PRN (Reason: headache) Qty: 20 0RF azithromycin 250 mg tablet See Rx Instructions .ROUTE .COMPLEX Qty: 6 0RF Rx Instructions: For 250 mg dose pack: take 500 mg today (day 1), then 250 mg for 4 days (days 2-5) omeprazole 20 mg capsule,delayed release(DR/EC) 20 mg PO DAILY 14 Days Qty: 14 0RF hydrocortisone acetate [Anusol-HC] 25 mg suppository 25 mg VA BID Qty: 24 0RF docusate sodium [Colace] 100 mg capsule 200 mg PO DAILY PRN (Reason: Constipation) Qty: 60 0RF dicyclomine 20 mg tablet 20 mg PO TID PRN (Reason: abdominal pain) Qty: 20 0RF fexofenadine-pseudoephedrine [Anabel-D 24 Hour] 180-240 mg tablet extended release 24 hr 1 tab PO QAM PRN (Reason: nasal congestion) Qty: 20 0RF doxycycline hyclate 100 mg tablet 100 mg PO BID 7 Days Qty: 14 0RF ofloxacin 0.3 % drops 10 drp otic (ears) DAILY 7 Days Qty: 10 0RF Interventions: ED Discharge Assessment Last Done: 02/05/25 03:26 Discharge Date/Time: 02/05/25 03:26 Print Language: Kazakh
[2025-02-04 22:38] VITALS: BP 136/76; PULSE 86; RESP 20; TEMP 36.1; O2SAT 99; BMI 34.5
[2025-02-04 23:06] LABS: MANUAL DIFF FLAG NO
[2025-02-04 23:07] LABS: Hematocrit 41.3 % (42.0-52.0); Hemoglobin 14.0 g/dl (14.0-18.0); Imm Gran Abs Auto 0.03 X10*3/uL (0.00-0.03); Imm Gran Pct Auto 0.4 % (0.0-0.4); Lymphocytes Absolute Auto 2.7 X10*3/uL (1.2-4.9); Mean Corpuscular HGB Conc 33.9 g/dl (31.0-36.0); Mean Corpuscular Hemoglobin 29.7 pg (27.0-33.0); Mean Corpuscular Volume 87.5 fL (80.0-98.0); NRBC Abs Auto 0.000 X10*3/uL (0.0-0.012); NRBC Pct Auto 0.0 /100WBC (0.0-0.2); Platelet Count 214 X10*3/uL (160-400); Red Blood Count 4.72 X10*6/uL (4.60-5.80); White Blood Count 8.2 X10*3/uL (4.8-10.8)
[2025-02-04 23:22] LABS: Alanine Aminotransferase 24 U/L (0-40); Albumin Level 4.8 g/dL (3.5-5.0); Alkaline Phosphatase 86 U/L (39-117); Anion Gap 14 (12-20); Aspartate Amino Transferase 25 U/L (5-37); Blood Urea Nitrogen 16 mg/dL (9-16); Calcium 9.3 mg/dL (8.4-10.2); Carbon Dioxide 24 mmol/L (22-29); Chloride 106 mmol/L (96-108); Creatinine Clr Calc Pharmacy 142.6; Estimated Glomerular Filt Rate > 60; Lipase 20 U/L (8-78); Potassium 3.7 mmol/L (3.3-5.1); Sodium 140 mmol/L (135-145); Total Protein 7.3 g/dL (6.5-8.0)
[2025-02-04 23:31] LABS: Troponin-I High Sensitivity < 2.7 ng/L (<3.5-35.0)
--- OUTSIDE RECORDS SUMMARY | 2025-02-05 02:23 | XMS_ITS | Encounter Summary ---
Author Organization [facility] Address [address] [place] [address] Care Team Providers Care School Business Administrator Name Role Phone Amberly Ram Primary Care Provider [phone] Reason for Visit * Reason Onset Date Comments Abdominal Pain 11/20/2021 Pt calling to [facility] for abdominal pain. No available schedule to book. Encounter Details Date Type Department Care Team (Late st Contact Info) Description 11/20/2021 Telephone [facility] Central Scheduling Department [address] [place] [address] Telephone Intake, Staff Abdominal Pain (Pt calling to schedule for abdominal pain. No available schedule to book.) Social History Tobacco Use Types Packs/Day Years Used Date Smoking Tobacco: Former Smokeless Tobacco: Former Sex and Gender Information Value Date Recorded Sex Assigned at Male 03/21/2023 10:20 AM EDT Legal Sex Male 11:45 AM EDT Gender Identity Male 03/21/2023 10:20 AM EDT Sexual Orientation Straight 03/21/2023 10 :20 AM EDT documented as of this encounter Miscellaneous Notes * Telephone Encounter - Vicky Willams - 11/25/2021 4:28 PM EDT PT is calling back to schedule, no schedule populates. Please reach out to PT for scheduling. * Telephone Encounter - Isabelle Gamboa - 11/20/2021 10:48 AM EDT Pt calling to schedule for abdominal pain. No available schedule to book. documented in this encounter Plan of Treatment Not on file documented as of this encounter Visit Diagnoses Not on filedocumented in this encounter Care Teams School Business Administrator Relationship Specialty Start Date End Date Amberly Ram [address] [place] [id number] PCP - General 05/09/23 documented as of this encounter
--- OUTSIDE RECORDS SUMMARY | 2025-02-05 02:23 | XMS_ITS | Encounter Summary ---
Author Organization [facility] Address [address] [place] [address] Care Team Providers Care Safe And Vault Service Mechanic Name Role Phone Amberly Ram Primary Care Provider [phone] Reason for Visit * Reason Onset Date Comments GERD 11/13/2021 Pcp office yanely ng to schedule for gerd and abdominal pain. No available apt to schedule. Pcp will fax referral Encounter Details Date Type Department Care Team (Late st Contact Info) Description 11/13/2021 Telephone [facility] Central Scheduling Department [address] [place] [address] Telephone Intake, Staff GERD (Pcp office calling to schedule for gerd and abdominal pain. No available apt to schedule. Pcp will fax referral) Social History Tobacco Use Types Packs/Day Years Used Date Smoking Tobacco: Never Assessed Sex and Gender Information Value Date Recorded Sex Assigned at Male 03/21/2023 10:20 AM EDT Legal Sex Male 11:45 AM EDT Gender Identity Male 03/21/2023 10:20 AM EDT Sexual Orientation Straight 03/21/2023 10 :20 AM EDT documented as of this encounter Miscellaneous Notes * Telephone Encounter - Isabelle Gamboa - 11/13/2021 11:50 AM EDT Pcp office calling to schedule for gerd and abdominal pain. No available apt to schedule. Pcp will fax referral documented in this encounter Plan of Treatment Not on file documented as of this encounter Visit Diagnoses Not on filedocumented in this encounter Care Teams Safe And Vault Service Mechanic Relationship Specialty Start Date End Date Amberly Ram [address] [place] [id number] PCP - General 05/09/23 documented as of this encounter
--- OUTSIDE RECORDS SUMMARY | 2025-02-05 02:23 | XMS_ITS | Patient Health Record ---
Author Organization [facility] Address [address] [place] [id number] Care Team Providers Care Design Cell Engineer Name Role Phone Larisa DOLAN, Melly Primary Care Provider Rodney Sparrow Unavailable [phone] Reason For Referral No Information Medications Medication SIG (Take, Route, Frequency, Duration) Notes Start Date End Date Status Ranitidine HCl 150 MG TAKE ONE TABLET TW ICE DAILY Oral for 30 Not-Taking Aleve prn 2 BID Not-Taking Omeprazole 20 MG 1 capsule Orally Onc e a day for 30 day(s) 10/20/2017 Not-Taking Immunizations Vaccine Route Administration Date Status Comme nts Influenza Unknown 04/18/2018 Administered Social History Tobacco Use: Social History Observation Description Date Details (start date - stop date) Former Smoker NA - NA Tobacco Use/Smoking Question Answer Notes Patient is a former smoker How long has it been since you last smoked? 6-12 months Alcohol Screen Question Answer Notes Did you have a drink contain ing alcohol in the past year? Yes How often did you have a dri nk containing alcohol in the past year? 2 to 3 times a week (3 points) How many drinks did you have on a typical day when you were drinking in the past year? 1 or 2 drinks (0 point) How often did you have 6 or more drinks on one occasion in the past year? Never (0 point) Points 3 Interpretation Negative Section Notes: 2 or 3 beers occ., occasiona l cigarette 2 or 3 beers occ., occasiona l cigarette Problems Problem Type SNOMED Code ICD Code Onset Dates Problem Status W/U Status Risk Notes Problem 723979223 Gastroesophageal reflux disease without esophagitis (K21.9) Active confirmed Problem 825256906 Gastroesophageal reflux disease, esophagitis presence not specified (K21.9) Active confirmed Problem 85745145 Pharyngoesophage al dysphagia (R13.14) Active confirmed Problem 58512052 Esophageal dysph agia (R13.10) Active confirmed Plan Of Treatment Future Test Test Name Order Date UPPER GI ENDOSCOPY BALLOOON DILATION OF ESOPH 10/20/2017 Insurance Providers Payer Name Payer Address Payer Phone Subscriber Number Group Number Insured Name Patient Relationship to Insured Coverage Start Date Coverage End Date [facility] [place] [address] [place] [phone] [id number] KRISTINA VITAL Self - patient is the insured Medical (General) History Medical History History ICD Code Denies GA,DM,CVA,Lung disease,renal dise ase Flat feet with chronic pain EGD 10/2017---Small HH, no st ricture/ring--dilated with an 18-20mm balloon--mild antral gastritis--biopsies neg for Boudreaux's, eosinophilic esophagitis, and H.pylori
--- OUTSIDE RECORDS SUMMARY | 2025-02-05 02:23 | XMS_ITS | Encounter Summary ---
Author Organization [facility] Address [address] [place] [address] Care Team Providers Care Sheriff'S Sergeant Name Role Phone Amberly Ram Primary Care Provider [phone] Encounter Details Date Type Department Care Team (Late st Contact Info) Description 12/16/2021 Telephone [facility] Patient Access Center [address] [place] [address] Telephone Intake, Staff Social History Tobacco Use Types Packs/Day Years Used Date Smoking Tobacco: Former Smokeless Tobacco: Former Sex and Gender Information Value Date Recorded Sex Assigned at Male 03/21/2023 10:20 AM EDT Legal Sex Male 11:45 AM EDT Gender Identity Male 03/21/2023 10:20 AM EDT Sexual Orientation Straight 03/21/2023 10 :20 AM EDT documented as of this encounter Miscellaneous Notes * Telephone Encounter - Heath Brewer - 02/05/2022 11:23 AM EDT Called patient left message for the patient to call back to schedule an appointment. Reason: Upper abdominal pain Visit type: New [place] Provider : Graciela Time frame : Next available * Telephone Encounter - Lakshmi Patton - 12/16/2021 1:53 PM EDT PT called to schedule gastro appt. No appts populating. Please follow up with PT at [phone]. documented in this encounter Plan of Treatment Not on file documented as of this encounter Visit Diagnoses Not on filedocumented in this encounter Care Teams Sheriff'S Sergeant Relationship Specialty Start Date End Date Amberly Ram [address] [place] [id number] PCP - General 05/09/23 documented as of this encounter
--- OUTSIDE RECORDS SUMMARY | 2025-02-05 02:23 | XMS_ITS | Encounter Summary ---
Author Organization [facility] Address [address] [place] [address] Care Team Providers Care Fire Prevention Bureau Captain Name Role Phone Amberly Ram Primary Care Provider [phone] Reason for Visit * Reason Onset Date Comments Appointment 01/19/2022 GERD Encounter Details Date Type Department Care Team (Late st Contact Info) Description 01/19/2022 Telephone [facility] Central Scheduling Department [address] [place] [address] Gastroenterology, Unv [address] [place] [address] Appointment (GERD) Social History Tobacco Use Types Packs/Day Years Used Date Smoking Tobacco: Former Smokeless Tobacco: Former Sex and Gender Information Value Date Recorded Sex Assigned at Male 03/21/2023 10:20 AM EDT Legal Sex Male 11:45 AM EDT Gender Identity Male 03/21/2023 10:20 AM EDT Sexual Orientation Straight 03/21/2023 10 :20 AM EDT documented as of this encounter Miscellaneous Notes * Telephone Encounter - Jignesh Cardozo - 01/22/2022 11:53 AM EDT Mariaelena called from the Providers office to schedule this PT for an Appointment for abdominal pain. I was not able to schedule the Appt due no dates populating. Please contact the PT to schedule this Appt * Telephone Encounter - Leticia Chavarria - 01/19/2022 2:11 PM EDT Pt called to book appt for Gerd. There is a referral on file. He has been to the ED a few times (non [facility]ass). due to schedule not populating I was unable to schedule. Please call patient to schedule documented in this encounter Plan of Treatment Not on file documented as of this encounter Visit Diagnoses Not on filedocumented in this encounter Care Teams Fire Prevention Bureau Captain Relationship Specialty Start Date End Date Amberly Ram [address] [place] [id number] PCP - General 05/09/23 documented as of this encounter
--- OUTSIDE RECORDS SUMMARY | 2025-02-05 02:23 | XMS_ITS | Encounter Summary ---
Author Organization [facility] Address [address] [place] [address] Phone Care Team Providers Care Moisture Tester Name Role Phone Stephen Carolina MD Primary Care Provider [phone] Encounter Details Date Type Department Care Team (Late st Contact Info) Description 01/05/2017 Conversion Encounter [facility] - [address], [address] [place] [address] Stephen Carolina MD [address] [place] [address] Social History Tobacco Use Types Packs/Day Years Used Date Smoking Tobacco: Never Assessed Sex and Gender Information Value Date Recorded Sex Assigned at Not on file Legal Sex Male 5:37 PM EST Gender Identity Not on file Sexual Orientation Not on file documented as of this encounter Plan of Treatment Not on file documented as of this encounter Visit Diagnoses Not on filedocumented in this encounter Care Teams Moisture Tester Relationship Specialty Start Date End Date Stephen Carolina MD [address] [place] [address] PCP - General 07/20/16 01/27/22 documented as of this encounter
--- OUTSIDE RECORDS SUMMARY | 2025-02-05 02:23 | XMS_ITS | Encounter Summary ---
Author Organization [facility] Address [address] [place] [address] Care Team Providers Care Supervisor Blueprinting And Photocopy Name Role Phone Amberly Ram Primary Care Provider [phone] Reason for Visit * Reason Onset Date Comments PAC Surgery/procedure Scheduling 10/01/2022 Encounter Details Date Type Department Care Team (Late st Contact Info) Description 10/01/2022 Telephone [facility] Patient Access Center [address] [place] [address] Telephone Intake, Staff PAC Surgery/procedure Scheduling Social History Tobacco Use Types Packs/Day Years Used Date Smoking Tobacco: Former Smokeless Tobacco: Former Alcohol Use Standard Drinks/Week Comments Yes 0 (1 standard drink = 0.6 oz pur e alcohol) Social Sex and Gender Information Value Date Recorded Sex Assigned at Male 03/21/2023 10:20 AM EDT Legal Sex Male 11:45 AM EDT Gender Identity Male 03/21/2023 10:20 AM EDT Sexual Orientation Straight 03/21/2023 10 :20 AM EDT documented as of this encounter Miscellaneous Notes * Telephone Encounter - Sandeep Smith - 10/01/2022 2:44 PM EDT Please see below * Telephone Encounter - Lora Orr - 10/01/2022 2:32 PM EDT Pt called to book PH test and also has an order for manometry. Please reach out to book. documented in this encounter Plan of Treatment Not on file documented as of this encounter Visit Diagnoses Not on filedocumented in this encounter Care Teams Supervisor Blueprinting And Photocopy Relationship Specialty Start Date End Date Amberly Ram [address] [place] [id number] PCP - General 05/09/23 documented as of this encounter
--- OUTSIDE RECORDS SUMMARY | 2025-02-05 02:23 | XMS_ITS | Encounter Summary ---
Author Organization [facility] Address [address] [place] [address] Care Team Providers Care Pals Nurse Name Role Phone Yo Amberly Primary Care Provider [phone] Encounter Details Date Type Department Care Team (Late st Contact Info) Description 05/09/2023 Transcribe Orders [facility] Referral [facility] [address] [place] [address] Tre Jean-Paul [address] [place] [address] Social History Tobacco Use Types Packs/Day Years [...] AM EDT documented as of this encounter Plan of Treatment Not on file documented as of this encounter Visit Diagnoses Not on filedocumented in this encounter Care Teams Pals Nurse Relationship Specialty Start Date End Date Amberly Ram [address] [place] [address] PCP - General 05/09/23 documented as of this encounter
--- OUTSIDE RECORDS SUMMARY | 2025-02-05 02:23 | XMS_ITS | Encounter Summary ---
Author Organization [employer] Address [address] [place] [address] Care Team Providers Care Plate Inspector Name Role Phone Page Fortune LUCILA Primary Care Provider [phone] Olena Avitia MD Primary Care Pro vider Encounter Details Date Type Department Care Team (Late st Contact Info) Description 08/04/2022 Orders Only [facility] [address] [place] [address] Coral Villalobos LPN Social History Tobacco Use Types Packs/Day Years Used Date Smoking Tobacco: Never Assessed Sex and Gender Information Value Date Recorded Sex Assigned at Male 03/29/2022 10:33 AM EDT Legal Sex Male 10:33 AM EDT Gender Identity Male 03/29/2022 10:33 AM EDT Sexual Orientation Choose not to disclose 2021 10:33 AM EDT documented as of this encounter Plan of Treatment Not on file documented as of this encounter Procedures Procedure Name Priority Date/Time Associated Diagnosis Comments SARS COV2/INFLUENZA A/B AND RSV RNA QL NAAT Routine 12/09/2022 1:24 PM EDT CULTURE, THROAT Routine 12/09/2022 1:24 PM EDT TSH W/REFLEX TO FT4 Routine 12/09/2022 1 2:48 PM EDT documented in this encounter Results * Culture, Throat (12/09/2022 1:24 PM EDT) 12/09/2022 1:24 PM EDT 12/09/2022 8:56 PM EDT Comment:Throat Narrative [facility] - 12/11/2022 2:29 PM EDT Throat Culture No Group A Beta-hemolytic Streptococci isolated. Specimen Source: Throat [facility] Exter nal Provider LAB MICROBIOLOGY - GENERAL ORDERABLES Final Result Performing Organization Address [facility] Co de Phone Number [facility] [address] [place] [phone] * SARS-CoV-2 RNA, Influenza A/B, and RSV RNA, Ql NAAT (12/09/2022 1:24 PM EDT) Influenza A PCR NEGATIVE Negative [facility] Influenza B PCR NEGATIVE Negative [facility] Resp Syncy Virus RNA Qual PCR NEGATIVE Negative [facility] SARS COV2 PCR NEGATIVE Negative [facility] Comment:All test results mus t be correlated with clinical findings.Negative results do not preclude SARS-CoV2, influenza Avirus, influenza B virus and/or RSV infectionand should not be used as the sole basis for treatment orother patient management decisions. Negative results must becombined with clinical observations, patient history, andepidemiological information.This test has not been evaluated for monitoring treatment ofinfection.This test has been authorized by the FDA under an EmergencyUse Authorization (EUA) for use by authorized laboratories.Testing performed on the [employer] GeneXpert utilizingreal-time RT-PCR.All SARS CoV2 and positive influenza A/B results arereported to [facility]. 12/09/2022 1:24 PM EDT 12/09/2022 8:25 PM EDT [facility] Exter nal Provider LAB MICROBIOLOGY - GENERAL ORDERABLES Final Result Performing Organization Address [facility] Co de Phone Number [facility] [address] [place] [phone] * TSH W/Reflex to FT4 (12/09/2022 12:48 PM EDT) TSH reflex Free T4 1.42 0.32 - 4.0 uIU/mL [facility] 12/09/2022 12:4 8 PM EDT 12/09/2022 4:29 PM EDT us [facility] External Provider LAB BLO OD ORDERABLES Final Result [facility] [address] [place] [address] [phone] documented in this encounter Visit Diagnoses Not on filedocumented in this encounter Care Teams Plate Inspector Relationship Specialty Start Date End Date Page Fortune FNP [address] [place] [address] PCP - General Family Medicine 01/22/22 12/16/22 Olena Avitia MD [address] [place] [address] PCP - General Internal Medicine 12/17/22 12/17/22 documented as of this encounter
--- OUTSIDE RECORDS SUMMARY | 2025-02-05 02:23 | XMS_ITS | Clinical Summary ---
Author Organization [facility] Address [address] [place] [address] Care Team Providers Care Junior Sales Representative Name Role Phone Amberly Ram Primary Care Provider [phone] Allergies No known active allergies Medications fluticasone propionate (FLONASE) 50 mcg/actuation nasal sprayIndications :Post-nasal drip Administer 2 sprays into each nostril once a day. 16 g 11 4 Active fluticasone propionate (FLONASE) 50 mcg/actuation nasal sprayIndications :Post-nasal drip Administer 2 sprays into each nostril once a day. 16 g [address] (CYMBALTA) 20 mg capsuleIndicatio ns:Functional dyspepsia Take 1 capsule (20 mg total) by mouth once a day. 30 capsule 11 4 Active dicyclomine (BENTYL) 10 mg capsule Take 1 capsule (10 mg total) by mouth 2 times a day as needed (esophageal spasm). 60 capsule 1 5 Active omeprazole (PriLOSEC) 40 mg capsuleIndicatio ns:Gastroesophag eal reflux disease, unspecified whether esophagitis present Take 1 capsule (40 mg total) by mouth 2 times a day. 60 capsule 11 5 Active Active Problems Problem Noted Date Diagnosed Date Acid reflux 02/18/2022 Dysphagia 02/18/2022 Arthritis of both feet 02/18/2022 Social History Tobacco Use Types Packs/Day Years Used Date Smoking Tobacco: Every Day Cigarettes Smokeless Tobacco: Former Tobacco Cessation:Ready to Q uit: Not Asked; Counseling Given: Not Answered Alcohol Use Standard Drinks/Week Comments Yes 0 (1 standard drink = 0.6 oz pur e alcohol) Social Sex and Gender Information Value Date Recorded Sex Assigned at Male 03/21/2023 10:20 AM EDT Legal Sex Male 11:45 AM EDT Gender Identity Male 03/21/2023 10:20 AM EDT Sexual Orientation Straight 03/21/2023 10 :20 AM EDT Last Filed Vital Signs Vital Sign Reading Time Taken Comments Blood Pressure 132/88 06/11/2024 10:16 AM EST Pulse 87 06/11/2024 10:16 AM EST Temperature 35.8 C (96.5 F) 06/11/2024 10:16 AM EST Respiratory Rate 16 11/10/2023 12:3 8 PM EDT Oxygen Saturation 97% 11/10/2023 12: 38 PM EDT Inhaled Oxygen Concentration - - Weight 101.6 kg (223 lb 15.8 oz) 2024 10:16 AM EST Height 170.2 cm (5' 7.01 ) 11/10/2023 1 2:38 PM EDT Body Mass Index 35.07 11/10/2023 12:38 PM EDT Plan of Treatment Health Maintenance Due Date Last Done Comments HIV Screening 1995 Hepatitis C Screening 1995 Pneumococcal Vaccine: Pediat subha (0-5 Years) and At-Risk Patients (6-50 Years) (1 of 2 - PCV) 2014 Alcohol/Substance Use Screening 05/30/2024 Depression Screening and Follow-Up 05/30/2024 Social Drivers of Health Enedelia ual Screening 05/30/2024 COVID-19 Vaccine (3 - 2024-2 6 season) 2025 01/19/2022, 12/27/2020 Influenza Vaccine (#1) 2025 07/17/2013, 2008 DTaP,Tdap,and Td Vaccines (8 - Td or Tdap) 01/20/2032 01/19/2022, 12/05/2007, 02/08/2000, Additional history exists RSV Vaccine (60+ years old a nd patients) (1 - 1-dose 75+ series) 2070 Hepatitis B Vaccines Completed 02/08/2000, 02/09/1999, 07/28/1998 Varicella Vaccines Completed 12/05/2007, 02/09/1999 Insurance [employer] [facility]/FREE CARE Advance Directives * Full Code (Latest Code Status on File) Date Activated Date Inactivated Comments 05/28/2022 2:44 PM 05/28/2022 5:24 PM Care Teams Junior Sales Representative Relationship Specialty Start Date End Date Amberly Ram [address] [place] [phone] PCP - General 05/09/23
--- OUTSIDE RECORDS SUMMARY | 2025-02-05 02:24 | XMS_ITS | Encounter Summary ---
Author Organization [facility] Address [address] [place] [address] Care Team Providers Care Geriatric Social Work Professor Name Role Phone Amberly Ram Primary Care Provider [phone] Encounter Details Date Type Department Care Team (Late st Contact Info) Description 05/27/2022 myChart Message [facility] Endoscopy [address] [place] [address] Mychart, Generic Provider [address] [place] [address] Appointment information and prep Social History Tobacco Use Types Packs/Day Years [...] on filedocumented in this encounter Care Teams Geriatric Social Work Professor Relationship Specialty Start Date End Date Amberly Ram [address] [place] [address] PCP - General 05/09/23 documented as of this encounter
--- OUTSIDE RECORDS SUMMARY | 2025-02-05 02:24 | XMS_ITS | Clinical Summary ---
Author Organization [facility] Address [address] [place] [phone] Phone Care Team Providers Care Hat And Cap Opener Name Role Phone Unavailable Primary Care Provider Unavailabl e Active Problems Patient Care Coordination No te Formatting of this note migh t be different from the original. 04/19/18 [id number] letter sent and inactivated No additional problems on file Immunizations Immunization Administration Dates Next Due BCG 1995 DTaP 02/08/2000, 8,12/23/1996,09/29,1995 H1N1 04/02/2009 HPV, Quadrivalent 07/17/2013 Hep B, ped/adol 02/08/2000,02/09/1999,07/28/1998 Hib (PRP-T) 02/09/1999 IPV 02/08/2000 Influenza, injectable, quadr ivalent, preservative free 07/17/2013 MMR 07/04/2000,12/23/1996 Meningococcal Conj (Menactra) MCV4P 07/17/2013,0 12/05/2007 OPV 08/19/1997, 7,1995,05/15 Tdap 12/05/2007 Varicella 12/05/2007,02/09/1999 Social History Tobacco Use Types Packs/Day Years Used Date Smoking Tobacco: Never Assessed Sex and Gender Information Value Date Recorded Sex Assigned at Not on file Legal Sex Male 5:37 PM EST Gender Identity Not on file Sexual Orientation Not on file Last Filed Vital Signs Vital Sign Reading Time Taken Comments Blood Pressure 116/69 09/04/2013 12:00 AM EDT Pulse 76 09/04/2013 12:00 AM EDT Temperature 37.6 C (99.6 F) 02/04/2014 12:00 AM EDT Respiratory Rate - - Oxygen Saturation - - Inhaled Oxygen Concentration - - Weight 91.1 kg (200 lb 12.7 oz) 014 12:00 AM EDT Height 168 cm (5' 6.13 ) 09/04/2013 12: 00 AM EDT Body Mass Index 32.29 09/04/2013 12:00 AM EDT Plan of Treatment Health Maintenance Due Date Last Done Comments HPV Vaccines (2 - Male 3-dose series) 08/14/2013 07/17/2013 DTaP,Tdap,and Td Vaccines (7 - Td or Tdap) 12/04/2017 12/05/2007, 02/08/2000, 08/23/1997, Additional history exists Influenza Vaccines (#1) 2024 07/17/2013 COVID-19 Vaccine ( season) 2025 HIB Vaccines Completed 02/09/1999 Hepatitis B Vaccines Completed 02/08/2000, 02/09/1999, 07/28/1998 IPV Vaccines Completed 02/08/2000, 07/29, 12/23/1996, Additional history exists MMR Vaccines Completed 07/04/2000, 12/23/1996 Varicella Vaccines Completed 12/05/2007, 02/09/1999 Meningococcal Vaccine Completed 07/17/2013, 008 Hepatitis A Vaccines Aged Out No long er eligible based on patient's age to complete this topic Men B Vaccine Aged Out No longer elig ible based on patient's age to complete this topic Pneumococcal Vaccine Aged Out No long er eligible based on patient's age to complete this topic
--- OUTSIDE RECORDS SUMMARY | 2025-02-05 02:24 | XMS_ITS | Clinical Summary ---
Author Organization [employer] Address [address] [place] [address] [address] [place] [address] Care Team Providers Care Gas Pipe Layer Name Role Phone Unavailable Primary Care Provider Unavailabl e Allergies No known active allergies Medications escitalopram (Lexapro) 5 MG tabletIndication s:Anxiety TAKE 1 TABLET BY MOUTH EVERY DAY 90 tablet 12/17/2022 Active cetirizine (ZyrTEC) 10 MG tabletIndication s:Nasal congestion Take 1 tablet (10 mg) by mouth in the morning. 90 tablet 03/30/2023 Active omeprazole (PriLOSEC) [address] capsuleIndicatio ns:Gastroesophag eal reflux disease, unspecified whether esophagitis present TAKE 1 CAPSULE BY MOUTH TWICE DAILY BEFORE MEALS 180 capsule 07/15/2023 Active Active Problems Problem Noted Date Diagnosed Date Acute diffuse otitis externa of left ear 024 Assessment & Plan (04/16/2024 10:36 AM EST): Conductive hearing loss in L ear, Impacted cerumen present in both ears Will treat for external otitis today with topical cipro/hydrocortisone ear drops in both ears BID x 7 days RTC for f/u if sx worsen or do not improve H/O gastroesophageal reflux (GERD) 12/09/2022 Anxiety 12/09/2022 Social History Tobacco Use Types Packs/Day Years Used Date Smoking Tobacco: Former Cigarettes Smokeless Tobacco: Never Tobacco Cessation:Counseling Given: Not Answered Sex and Gender Information Value Date Recorded Sex Assigned at Male 03/29/2022 10:33 AM EDT Legal Sex Male 10:33 AM EDT Gender Identity Male 03/29/2022 10:33 AM EDT Sexual Orientation Choose not to disclose 2021 10:33 AM EDT Last Filed Vital Signs Vital Sign Reading Time Taken Comments Blood Pressure 124/84 04/16/2024 9:44 AM EST Pulse 96 04/16/2024 9:44 AM EST Temperature 36.3 C (97.4 F) 04/16/2024 9:44 AM EST Respiratory Rate 18 04/16/2024 9:44 AM EST Oxygen Saturation 98% 03/30/2023 2:21 PM EDT Inhaled Oxygen Concentration - - Weight 105 kg (230 lb 12.8 oz) 04/16/2024 9:44 A M EST Height 170.2 cm (5' 7 ) 04/16/2024 9:44 AM EST Body Mass Index 36.15 04/16/2024 9:44 AM EST Plan of Treatment Health Maintenance Due Date Last Done Comments Depression Screening 1995 HIV Screening 1995 SDOH Screening 1995 Disability Screening 1995 Alcohol/Substance Use Screening 2007 Family Planning (PISQ) 2010 Hepatitis C Screening 2013 HPV Vaccines (2 - Male 3-dose series) 08/14/2013 07/17/2013 COVID-19 Vaccine (3 - season) 2025 01/19/2022, 12/27/2020 Influenza Vaccine (#1) 2025 07/17/2013, 2008 Tobacco Screening 04/16/2025 04/16/2024 DTaP/Tdap/Td Vaccines (8 - Td or Tdap) 01/20/2032 01/19/2022, 12/05/2007, 02/08/2000, Additional history exists Zoster Vaccines (1 of 2) 2045 RSV Patients and Patients Aged 60 years or older (1 - 1-dose 75+ series) 2070 HIB Vaccines Completed 02/09/1999 Hepatitis B Vaccines Completed 02/08/2000, 02/09/1999, 07/28/1998 IPV Vaccines Completed 02/08/2000, 07/29, 12/23/1996, Additional history exists Meningococcal Vaccine Completed 07/17/2013, 008 Hepatitis A Vaccines Aged Out No long er eligible based on patient's age to complete this topic Meningococcal B Vaccine Aged Out No l onger eligible based on patient's age to complete this topic Pneumococcal Vaccine: Pediatrics (0 to 5 Years) and At-Risk Patients (6 to 49) Years Aged Out No longer eligible based on patient's age to complete this topic RSV under 20 months Aged Out No longe r eligible based on patient's age to complete this topic Rotavirus Vaccines Aged Out No longer eligible based on patient's age to complete this topic [place] [address] [place] [address] [address] [facility] FULL
[2025-02-05] MEDS: Magnesium Hydrox/Alum Hydrox 30 ML ORAL.SUSP PO (03:19)
[2025-02-05 03:26] VITALS: BP 129/78; PULSE 78; RESP 20; TEMP 36.6; O2SAT 99
== END 2025-02-05 03:26 | disposition home or self-care (01) ==
PROVIDERS: Physician Assistant; Emergency Provider Emergency Medicine
DX: R07.89 Other chest pain (principal); R10.11 Right upper quadrant pain
CPT/HCPCS: 36415; 80053; 83690; 84484; 85025; 93005; 99283

== ENCOUNTER → 2025-02-04 21:45 | Outpatient (BNV) | payer MEDICAID, SELFPAY | PROVIDERS: Emergency Provider Emergency Medicine; Visit Provider Internal Medicine Cardiovascular Disease | DX: R07.9 Chest pain, unspecified (principal) | CPT/HCPCS: 93010 ==